=== PATIENT | female | born 1980 | race Caucasian/White ===

== ENCOUNTER 2024-06-23 08:17 | Observation (INO) | payer OTHER, SELFPAY ==
[2024-06-23] VITALS (8 sets, daily range): BP systolic 101–129; BP diastolic 65–85; PULSE 83–107; RESP 14–20; TEMP 36.4–36.9; O2SAT 86–98; BMI 29.9
--- NOTE | 2024-06-23 | ECG_ITS ---
Test Reason : sob Blood Pressure : */* mmHG Vent. Rate : 73 BPM Atrial Rate : 73 BPM P-R Int : 132 ms QRS Dur : 76 ms QT Int : 374 ms P-R-T Axes : 63 44 42 degrees QTcB Int : 412 ms Normal sinus rhythm Cannot rule out Anterior infarct , age undetermined Abnormal ECG No previous ECGs available Referred By: Generic ED Physician Electronically Signed By: TRINI CAMPOVERDE MD
--- NOTE | ~2024-06-23 | XR_ITS ---
EXAMINATION: XR CHEST 1 VIEW HISTORY: SOB COMPARISON: There are no prior studies for comparison. FINDINGS: A single AP portable view of the chest performed at 9:43 AM is submitted. The lungs are expanded and clear. There is no pleural effusion, pneumothorax, or pulmonary vascular congestion. The heart is normal in size. There is mild degenerative disc disease of the spine. XR/XR chest 1V IMPRESSION: Clear lungs. Electronically signed by: Hiren Cruz MD 06/23/2024 10:08 AM [facility]
--- NOTE | ~2024-06-23 | US_ITS ---
CLINICAL HISTORY: splenomegaly US abdomen limited Comparison: None Findings: Liver is mildly enlarged with diffuse mildly increase of echogenicity. The spleen measures 12.9 cm in size. No enlarged lymph node is noted. IMPRESSION: Hepatomegaly and mild hepatic steatosis. Borderline splenomegaly. This document has been electronically signed by: Jesus Sigala MD on 06/24/2024 12:24:46
--- NOTE | ~2024-06-23 | CT_ITS ---
EXAMINATION: CT CHEST ANGIOGRAPHY WITH IV CONTRAST INDICATION: difficulty breathing, concern for PE COMPARISON: There are no prior studies available for comparison. TECHNIQUE: Helical CT scan of the chest was performed following administration of intravenous contrast (65 mL Omnipaque 350). The contrast bolus was timed to optimally opacify the pulmonary arteries. Thin sections were obtained through the pulmonary arteries. Coronal and sagittal reformatted images were generated. 3D/MIP reconstructed images are also obtained and reviewed. This CT exam was performed with one or more of the following dose reduction techniques: automated exposure control, adjustment of the mA and/or kV according to patient size, use of iterative reconstruction technique. DLP: 219 mGy-cm CHEST: THYROID: The thyroid gland is unremarkable. PULMONARY ARTERIES: No intraluminal filling defects are identified within the pulmonary arteries to suggest pulmonary emboli. LUNGS: There is mild motion artifact. Scattered groundglass opacities are likely related to the phase of respiration. There are no focal airspace opacities or pulmonary nodules. MEDIASTINUM: There is no mediastinal lymphadenopathy. ALEX: There is no hilar lymphadenopathy. CARDIOVASCULATURE: The heart is normal in size. There is no pericardial effusion. The thoracic aorta is normal in caliber. DEGREE OF CORONARY CALCIFICATION: none PLEURA: There is no pleural effusion. No pneumothorax. MAIN AIRWAYS: The mainstem bronchi and proximal branches are patent. AXILLA: There is no axillary lymphadenopathy. UPPER ABDOMEN: The visualized portions of the liver and adrenals are unremarkable. The spleen is enlarged. There is thickening of the distal esophagus. BONES AND SOFT TISSUES: There is mild degenerative disc disease of the spine. CT/CT angio chest PE protocol IMPRESSION: 1. No evidence of pulmonary emboli. No focal airspace opacity is seen. 2. Splenomegaly. Thickening of the distal esophagus. This could be further evaluated with barium swallow or upper endoscopy. Electronically signed by: Hiren Cruz MD 06/23/2024 11:24 AM [facility]
[2024-06-23 09:03] LABS: MANUAL DIFF FLAG NO
[2024-06-23 09:07] LABS: Basophils Absolute Auto 0.1 X10*3/uL (0.0-0.2); Basophils Percent Auto 1.2 % (0-2); Eosinophils Absolute Auto 0.7 X10*3/uL (0.0-0.4); Eosinophils Percent Auto 8.7 % (0-4); Hematocrit 39.1 % (37.0-47.0); Imm Gran Abs Auto 0.09 X10*3/uL (0.00-0.03); Imm Gran Pct Auto 1.1 % (0.0-0.4); Lymphocytes Percent Auto 34.7 % (20-40); Mean Corpuscular HGB Conc 30.7 g/dl (31.0-35.0); Mean Corpuscular Hemoglobin 20.5 pg (27.0-33.0); Mean Corpuscular Volume 66.7 fL (80.0-98.0); Mean Platelet Volume 8.7 fL (9.4-12.3); Monocytes Absolute Auto 0.5 X10*3/uL (0.1-1.2); Monocytes Percent Auto 6.1 % (2-11); Neutrophils Absolute Auto 4.1 x10*3/uL (2.0-8.3); Neutrophils Percent Auto 48.2 % (45-73); Platelet Count 287 X10*3/uL (160-400); Red Blood Count 5.86 X10*6/uL (4.20-5.50); Red Cell Distribution Width 17.3 % (11.0-16.0); White Blood Count 8.5 X10*3/uL (4.8-10.8)
--- NOTE | 2024-06-23 09:36 | ED_ITS ---
HPI - General Adult General Chief complaint: Dyspnea Stated complaint: low oxygen Time Seen by Provider: 06/23/24 09:25 Source: patient Mode of arrival: ambulatory Limitations: no limitations History of Present Illness ED Provider: Jade Villalta PA-C HPI narrative: Patient is a 43 year old assigned female at with a history of asthma and seasonal allergies presenting to the emergency department today with continued shortness of breath / wheezing / concerns about her oxygen saturation. Patient states that she was seen at an Urgent Care on 06/20/2024 for shortness of breath / chest pain and they started her on prednisone and told her to go to an emergency department. Patient states that on 06/21/2024 she went to [facility] where she was admitted for hypoxia and continued need for breathing treatments. Patient states that after 9 hours being there - she left against medical advice. Patient states that she continues to have intermittent episodes of shortness of breath / chest pain. Patient states that during these episodes - she has kept track of her oxygenation and it has been low (80s). Patient states that her nails have been painted throughout all of this. Patient states that she has continued to take her prednisone as prescribed. Patient also noted that she has developed small blisters to the palms of her hands and she is not sure what those are. Patient denies any dizziness, lightheadedness, abdominal pain, nausea, vomiting, fever, chills, blurry vision, double vision, loss of vision, back pain, night sweats, pain with urination, increased urinary frequency, increased urinary urgency, blood in her urine or stool, syncope or a near syncopal episode, recent trauma or falls, bowel incontinence, bladder incontinence, or any other complaints at this time. Onset (ago): day(s) Relieving factors: none Exacerbating factors: none Associated symptoms: chest pain and shortness of breath Treatments prior to arrival: other (prednisone) Related Data Home Medications ?Medication ?Instructions ?Recorded ?Confirmed buspirone 5 mg tablet 5 mg PO BID 06/23/24 06/23/24 cetirizine 10 mg tablet 10 mg PO DAILY 06/23/24 06/23/24 dapagliflozin propanediol 10 mg 10 mg PO DAILY 06/23/24 06/23/24 tablet (Farxiga) fluconazole 150 mg tablet 150 mg PO DAILY 06/23/24 06/23/24 fluticasone propionate 230 2 puff inhalation BID 06/23/24 06/23/24 mcg-salmeterol 21 mcg/actuation HFA inhaler (Advair HFA) lisinopril 10 mg tablet 10 mg PO DAILY 06/23/24 06/23/24 metformin 500 mg tablet,extended 1,000 mg PO DAILY 06/23/24 06/23/24 release 24 hr metformin 500 mg tablet,extended 500 mg PO BEDTIME 06/23/24 06/23/24 release 24 hr montelukast 10 mg tablet 10 mg PO BEDTIME 06/23/24 06/23/24 prednisone 20 mg tablet See Taper PO DIRECTED 06/23/24 06/23/24 semaglutide 0.25 mg or 0.5 mg (2 0.5 mg subcut WE 06/23/24 06/23/24 mg/3 mL) subcutaneous pen injector (Ozempic) sertraline 100 mg tablet 200 mg PO DAILY 06/23/24 06/23/24 Allergies Allergy/AdvReac Type Severity Reaction Status Date / Time No Known Allergies Allergy Verified 06/23/24 08:44 Review of Systems 2 Constitutional: Constitutional: Reports no additional constitutional complaints, Denies chills, Denies fever(s) and Denies night sweats Eyes: Eyes: Reports no additional eye complaints, Denies blurry vision, Denies change in vision, Denies diplopia, Denies eye discharge, Denies loss of vision and Denies eye pain ENT: Denies dizziness Cardiovascular: Cardiovascular: Reports no additional cardiovascular complaints, Reports chest pain, Denies lightheadedness, Denies Loss of Consciousness and Reports dyspnea Respiratory: Respiratory: Reports no additional respiratory complaints, Reports cough and Reports dyspnea Gastrointestinal: Gastrointestinal: Reports no additional gastrointestinal complaints, Denies abdominal pain, Denies melena, Denies hematochezia, Denies change in bowel habits and Denies change in stool character Genitourinary: Genitourinary: Denies hematuria, Denies urinary frequency, Denies dysuria, Denies urinary incontinence, Denies urinary hesitancy and Denies urinary urgency Musculoskeletal: Musculoskeletal: Reports no additional musculoskeletal complaints, Denies numbness and Denies tingling Neurologic: Denies dizziness, Denies loss of vision, Denies numbness and Denies tingling Psychiatric: Psychiatric: Reports no additional psychiatric complaints Endocrine: Endocrine: Reports no additional endocrine complaints Hematologic/Lymphatic: Hematologic/Lymphatic: Reports no additional hematologic/lymphatic complaints Allergic/Immunologic: Allergic/Immunologic: Reports no additional allergic/immunologic complaints PMFSH Past Medical History Attestation statement: The following information was validated with the patient. Source: old records reviewed and nursing notes reviewed Social History Social History Alcohol intake: current Alcohol intake frequency: a few times a month Smoked in Last 30 Days: No Use of substances other than those prescribed or required for medical reasons: Yes Substance Use Type: Marijuana Advance Directives: No Advance Directives Information Provided: No Do you have a plan to hurt others: No Plan Physical Exam ED Vital Signs: Vital Signs - 24 hr 06/23/24 08:40 06/23/24 10:12 06/23/24 10:25 Temperature 98.2 F 97.6 F Pulse Rate 84 87 84 Respiratory Rate 20 18 20 Blood Pressure 129/85 101/65 Pulse Oximetry 97 95 Oxygen Delivery Method Room Air Room Air 06/23/24 12:05 06/23/24 13:47 06/23/24 16:11 Temperature 97.8 F Pulse Rate 83 102 H Respiratory Rate 19 14 Blood Pressure 125/74 Pulse Oximetry 86 L 93 Oxygen Delivery Method Room Air Room Air BMI result Body Mass Index 29.9 Const General: cooperative, no acute distress, alert and awake Nutritional Appearance: well nourished Orientation/consciousness: patient oriented x3 Limitations: no limitations HENMT Head: Yes normal to inspection and Yes atraumatic Ears: hearing grossly normal bilaterally and external ears normal General nose exam: Normal external nose present, no nasal discharge noted and no epistaxis Face and sinus: Yes normal facial exam, No abrasion and No laceration Mouth: Normal oral and palatal mucosa present, no drooling and no muffled voice Eyes General: appearance normal, both eyes and all related structures Periorbital: periorbital findings normal Eyelids: Yes eyelids normal Conjunctivae: conjunctivae normal Pupils: Equal, round and reactive pupils present EOM: EOMs intact bilaterally Neck Neck: Yes normal visual inspection, Yes full ROM and Yes no lymphadenopathy Chest Chest palpation & inspection: normal inspection of the chest Resp Effort & Inspection: normal respiratory effort and able to speak in complete sentences Auscultation: wheezes throughout GI Inspection: Yes normal to inspection Neuro General: patient oriented x3 and moves all extremities Cranial nerves: Yes Equal, round and reactive pupils present Cognition (Neuro): normal cognition Extrem Other: multiple small blisters with the bilateral palms - consistent with dyshidrotic eczema General: Yes full ROM and Yes capillary refill normal Psych Appearance: grossly normal Mental Status: mental status grossly normal Affect: normal affect Attitude: cooperative Thought process: Normal thought process present Thought content: Normal thought content present Insight: Good insight present (Psych) Medications Administered Generic Name Dose Route Start Last Admin Trade Name Freq PRN Reason Stop Dose Admin Albuterol/Ipratropium 3 ml 06/23/24 16:00 06/23/24 16:09 Albuterol/Iprat 2.5/0.5mg 3 Ml Ampul.Neb INHALE 3 ml RQ4H JERZY Administration Discontinued Medications Generic Name Dose Route Start Last Admin Trade Name Freq PRN Reason Stop Dose Admin Albuterol Sulfate 2.5 mg/ 0 mg 06/23/24 10:11 06/23/24 10:16 Albuterol/Ipratropium 3 ml INHALE 06/23/24 10:12 5 dose ONCE ONE Administration Sodium Chloride 1,000 mls @ 999 mls/hr 06/23/24 11:45 06/23/24 13:30 Ns IV 06/23/24 12:45 Infused .Q1H1M JERZY Infusion Magnesium Sulfate/Dextrose 1 gm in 100 mls @ 100 mls/hr 06/23/24 11:38 06/23/24 12:20 Magnesium Sulfate/D5w IV 06/23/24 12:37 Infused ONCE ONE Infusion Iohexol 100 ml 06/23/24 11:06 06/23/24 11:06 Iohexol 350 Mg/Ml 100 Ml Infus..Btl IV 06/23/24 11:07 70 ml ONCE ONE Administration Methylprednisolone Sodium Succinate 60 mg 06/23/24 11:38 06/23/24 12:02 Methylprednisolone Sod Succ 125 Mg/2 Ml Vial IVPUSH 06/23/24 11:39 60 mg ONCE ONE Administration Medical Decision Making Medical Decision Making MDM Narrative: Patient is a 43 year old assigned female at with a history of asthma and seasonal allergies presenting to the emergency department today with continued shortness of breath / wheezing / concerns about her oxygen saturation. Patient's physical exam was as noted in the physical exam portion of this note. Patient's blisters / rash to the palm of her hands is most consistent with dyshidrotic eczema. Patient's blood work was unremarkable. Patient's EKG was unremarkable. Patient's chest x-ray and CT PE studies showed no acute process. Patient desatted while in the department to the mid 80s. Patient was given breathing treatments, IV magnesium, and IV solu-medrol which upon re-evaluation she stated helped her symptoms some. I spoke to the hospitalist team who agreed to admission. I explained my physical exam findings as well as all test results to the patient. I answered all questions asked by the patient. Patient verbalized agreement and understanding with this treatment plan and admission. Differential Diagnosis Differential Diagnoses: The differential diagnosis associated with the presentation includes Asthma exacerbation Dyshidrotic eczema Hypoxia Admission/Observation Consideration of admission/observation: Escalation of care including admission/observation considered Patient admitted as noted in the MDM Rationale portion of this note. Consult Healthcare Provider Management of the patient was discussed with: Hospitalist (agreed to admission as noted in the MDM Rationale portion of this note. ) Lab Data [facility] Lab Attestation statement: I reviewed the patient's lab results. My interpretation of these results are in the MDM Rationale portion of this note. 06/23/24 08:58 06/23/24 08:58 Labs: Lab Results 06/23/24 Range/Units 08:58 WBC 8.5 (4.8-10.8) X10*3/uL RBC 5.86 H (4.20-5.50) X10*6/uL Hgb 12.0 (12.0-16.0) g/dl Hct 39.1 (37.0-47.0) % MCV 66.7 L (80.0-98.0) fL MCH 20.5 L (27.0-33.0) pg MCHC 30.7 L (31.0-35.0) g/dl RDW 17.3 H (11.0-16.0) % Plt Count 287 (160-400) X10*3/uL MPV 8.7 L (9.4-12.3) fL Immature Gran % (Auto) 1.1 H (0.0-0.4) % Neut % (Auto) 48.2 (45-73) % Lymph % (Auto) 34.7 (20-40) % Weakley % (Auto) 6.1 (2-11) % Eos % (Auto) 8.7 H (0-4) % Baso % (Auto) 1.2 (0-2) % Lymph # (Auto) 3.0 (1.2-4.9) X10*3/uL Weakley # (Auto) 0.5 (0.1-1.2) X10*3/uL Eos # (Auto) 0.7 H (0.0-0.4) X10*3/uL Baso # (Auto) 0.1 (0.0-0.2) X10*3/uL Abs Immat Gran (auto) 0.09 H (0.00-0.03) X10*3/uL Absolute Neuts (auto) 4.1 (2.0-8.3) x10*3/uL Absolute Nucleated RBC 0.000 (0.0-0.012) X10*3/uL Nucleated RBC % (auto) 0.0 (0.0-0.2) /100WBC Sodium 140 (135-145) mmol/L Potassium 4.2 (3.3-5.1) mmol/L Chloride 110 H (96-108) mmol/L Carbon Dioxide 21 L (22-29) mmol/L Anion Gap 13 (12-20) BUN 23 H (9-16) mg/dL Creatinine 0.71 (0.5-1.4) mg/dL Estim Creat Clear Calc 92.6 Estimated GFR > 60 Random Glucose 131 H (60-115) mg/dL Calcium 8.6 (8.4-10.2) mg/dL Total Bilirubin 0.4 (0.0-1.0) mg/dL AST 14 (5-31) U/L ALT 12 (0-31) U/L Alkaline Phosphatase 80 (39-117) U/L Troponin I High Sens < 2.7 (<3.5-17.0) ng/L Total Protein 6.9 (6.5-8.0) g/dL Albumin 3.8 (3.5-5.0) g/dL Influenza Type A (PCR) NEGATIVE (Negative) Influenza Type B (PCR) NEGATIVE (Negative) RSV RNA Qual (PCR) NEGATIVE (Negative) SARS-CoV-2 RNA (RT-PCR) NEGATIVE (Negative) Independent Interpretation I performed an independent interpretation of an: EKG, Plain X-Ray and CT Scan Interpretation: My interpretation is in agreement with the radiologist's impression of these imaging studies. L EXAMINATION: XR CHEST 1 VIEW HISTORY: SOB COMPARISON: There are no prior studies for comparison. FINDINGS: A single AP portable view of the chest performed at 9:43 AM is submitted. The lungs are expanded and clear. There is no pleural effusion, pneumothorax, or pulmonary vascular congestion. The heart is normal in size. There is mild degenerative disc disease of the spine. XR/XR chest 1V IMPRESSION: Clear lungs. Electronically signed by: Hiren Cruz MD 06/23/2024 10:08 AM [facility] Dictated By: Hiren Cruz MD Signed By: Electronically signed by Hiren Cruz MD 06/23/24 1008 Report Number: [id number]: Total DLP = 219.00 mGy-cm EXAMINATION: CT CHEST ANGIOGRAPHY WITH IV CONTRAST INDICATION: difficulty breathing, concern for PE COMPARISON: There are no prior studies available for comparison. TECHNIQUE: Helical CT scan of the chest was performed following administration of intravenous contrast (65 mL Omnipaque 350). The contrast bolus was timed to optimally opacify the pulmonary arteries. Thin sections were obtained through the pulmonary arteries. Coronal and sagittal reformatted images were generated. 3D/MIP reconstructed images are also obtained and reviewed. This CT exam was performed with one or more of the following dose reduction techniques: automated exposure control, adjustment of the mA and/or kV according to patient size, use of iterative reconstruction technique. DLP: 219 mGy-cm CHEST: THYROID: The thyroid gland is unremarkable. PULMONARY ARTERIES: No intraluminal filling defects are identified within the pulmonary arteries to suggest pulmonary emboli. LUNGS: There is mild motion artifact. Scattered groundglass opacities are likely related to the phase of respiration. There are no focal airspace opacities or pulmonary nodules. MEDIASTINUM: There is no mediastinal lymphadenopathy. ALEX: There is no hilar lymphadenopathy. CARDIOVASCULATURE: The heart is normal in size. There is no pericardial effusion. The thoracic aorta is normal in caliber. DEGREE OF CORONARY CALCIFICATION: none PLEURA: There is no pleural effusion. No pneumothorax. MAIN AIRWAYS: The mainstem bronchi and proximal branches are patent. AXILLA: There is no axillary lymphadenopathy. UPPER ABDOMEN: The visualized portions of the liver and adrenals are unremarkable. The spleen is enlarged. There is thickening of the distal esophagus. BONES AND SOFT TISSUES: There is mild degenerative disc disease of the spine. CT/CT angio chest PE protocol IMPRESSION: 1. No evidence of pulmonary emboli. No focal airspace opacity is seen. 2. Splenomegaly. Thickening of the distal esophagus. This could be further evaluated with barium swallow or upper endoscopy. Electronically signed by: Hiren Cruz MD 06/23/2024 11:24 AM EST Dictated By: Hiren Cruz MD Signed By: Electronically signed by Hiren Cruz MD 06/23/24 1124 I independently interpreted this EKG and am in agreement with the below findings: Vent. Rate: 73 BPM Atrial Rate: 73 BPM P-R Int: 132 ms QRS Dur: 76 ms QT Int: 374 ms P-R-T Axes: 63 44 42 degrees QTcB Int: 412 ms Normal sinus rhythm Cannot rule out Anterior infarct, age undetermined No previous ECGs available Electronically Signed By: BURT CAMPOVERDE MD Dictated By: Burt Campoverde MD Signed By: Electronically signed by Burt Campoverde MD 06/23/24 1055 Radiology Impression Discussion of test interpretation with radiology: I have reviewed the radiologist's reading. Critical Care Time Critical Care Time Critical Care Time: Yes Total Critical Care Time: 41 Attestation: I spent 41 minutes of Critical Care Time with this patient. This does not include time spent on separately reported billable procedures. Discharge Plan Discharge Clinical Impression: Asthma with exacerbation, Hypoxia Patient Disposition: Admitted As Inpatient
[2024-06-23 09:43] LABS: Influenza A PCR NEGATIVE (Negative); Influenza B PCR NEGATIVE (Negative); Resp Syncy Virus RNA Qual PCR NEGATIVE (Negative); SARS COV2 PCR INHOUSE NEGATIVE (Negative)
[2024-06-23 09:44] LABS: Alanine Aminotransferase 12 U/L (0-31); Albumin Level 3.8 g/dL (3.5-5.0); Anion Gap 13 (12-20); Aspartate Amino Transferase 14 U/L (5-31); Bilirubin Total 0.4 mg/dL (0.0-1.0); Blood Urea Nitrogen 23 mg/dL (9-16); Calcium 8.6 mg/dL (8.4-10.2); Carbon Dioxide 21 mmol/L (22-29); Chloride 110 mmol/L (96-108); Creatinine Clr Calc Pharmacy 92.6; Estimated Glomerular Filt Rate > 60; Glucose Random 131 mg/dL (60-115); Potassium 4.2 mmol/L (3.3-5.1); Sodium 140 mmol/L (135-145); Total Protein 6.9 g/dL (6.5-8.0)
[2024-06-23 09:48] LABS: Troponin-I High Sensitivity < 2.7 ng/L (<3.5-17.0)
[2024-06-23] MEDS: Albuterol Sulfate 2.5 MG, Albuterol/Iprat 2.5/0.5MG 3 ML 3 ML INHALE (10:16)
--- NOTE | 2024-06-23 10:21 | PC.NURSE ---
pt is alert and oriented, skin pwd, respirations even and unlabored, ls wheezing through out all banks, pt reports feeling sob 5-6 days with a dry cough initially and now a junky cough but not productive, denies pain, vs stable and ns on the monitor
[2024-06-23] MEDS: iohexoL 350 MG/ML 100 ML INFUS..BTL IV (11:06)
[2024-06-23] MEDS: 0.9 % Sodium Chloride 1,000 ML 999 ML IV (12:02)
[2024-06-23] MEDS: methylPREDNISolone Sod Succ 125 MG/2 ML VIAL 60 MG IVPUSH (12:02)
[2024-06-23] MEDS: Magnesium Sulfate/D5W 1 GM/100 ML PIGGYBACK IV (12:03)
[2024-06-23 14:10] LABS: Alkaline Phosphatase 80 U/L (39-117)
--- NOTE | 2024-06-23 14:27 | PHA.MEDREC ---
Addendum entered by Chelo Fry [facility] 06/23/24 14:55: REVIEWED Original Note: Pharmacy Consult ? Medication Reconciliation Pharmacy has completed the medication reconciliation. Spoke with patient and she confirmed her medications. Patient confirmed she is taking the Fluconazole 150mg tab and stated she took 1 tab of that this morning. She confirmed her Prednisone 20mg regimen and confirmed she is taking 3 tabs for 3 days, 2 tabs for 3 days and 1 tab for 3 days and stated she is on her last day of taking 3 tabs for 3 days and stated she was going to be starting the 2 tabs for 3 days tomorrow. She confirmed she was taking the Amoxicillin 500mg tab 1 Q8H but stated she thinks she had a bad reaction to it and stopped it on Wednesday. She confirmed she is still taking the Ozempic 0.5mg injection once a week and confirmed she is taking it on Wednesdays but states she was not able to do it this weekend due to circumstances out of her control but confirmed she did it on 06/14. She confirmed she took her morning medications this morning this morning except for the Metformin, she stated she did not get to take it this morning.
[2024-06-23] MEDS: Albuterol/Iprat 2.5/0.5MG 3 ML AMPUL.NEB INHALE ×2 (16:09→19:49)
[2024-06-23] MEDS: Loratadine 10 MG TABLET PO (16:47)
[2024-06-23] MEDS: 0.9 % Sodium Chloride Flush 3 ML SYRINGE IVFLUSH (16:48)
--- NOTE | 2024-06-23 17:57 | P.HPHOSP_ITS ---
History of Present Illness Date of Service: 06/23/24 Attending physician on admission: Sri Snowden Chief Complaint: asthma execerbation Hpi:43 y/o F with pmhx asthma, htn ,dm, obesity and seasonal allergies came with shortness of breath & concerns about her oxygen saturation.Patient states that she was seen at an Urgent Care on 06/20/2024 for shortness of breath ,given prednisone , Patient says that on 06/21/2024 she went to [facility] for hypoxia and continued need for breathing treatments.she left against medical advice. Patient states that she continues to have intermittent episodes of shortness of breath / chest soarness with cough. as per ED:during these episodes - she has kept track of her oxygenation and it has been low (80s). In ed also documented sats of 86% on room air. ?Patient also noted that she has developed small blisters to the palms of her hands and she is not sure what those are. Denies sick contact or abdominal pain or fever or chills or nausea or vomiting Denies any weakness or numbness. labs :wbc: 8.5 bmp seems fine serologies for influenza A&B/RSV/COVID -negative. cta: 1. No evidence of pulmonary emboli. No focal airspace opacity is seen. 2. Splenomegaly. Thickening of the distal esophagus. This could be further evaluated with barium swallow or upper endoscopy. cxr: Clear lungs. trop x 1 : negative. ekg: nsr . she was given nebs,steriods -requested admission for acute hypoxemic respiratory failure secondary to asthma exacerbation. Review of Systems 2 Review of Systems: as above. Yes all other systems are reviewed and are negative [facility] Social History Alcohol intake: current Alcohol intake frequency: a few times a month Smoked in Last 30 Days: No Use of substances other than those prescribed or required for medical reasons: Yes Substance Use Type: Marijuana Advance Directives: No Advance Directives Information Provided: No Do you have a plan to hurt others: No Plan Meds Allergies Allergy/AdvReac Type Severity Reaction Status Date / Time No Known Allergies Allergy Verified 06/23/24 08:44 Active Medications: Current Medications Acetaminophen (Acetaminophen 325 Mg Tablet) 650 mg PO Q6H PRN PRN Reason: Pain, Mild 1-3,fever,headache Albuterol/Ipratropium (Albuterol/Iprat 2.5/0.5mg 3 Ml Ampul.Neb) 3 ml INHALE RQ4H [facility] Last Admin: 06/23/24 16:09 Dose: 3 ml Albuterol/Ipratropium (Albuterol/Iprat 2.5/0.5mg 3 Ml Ampul.Neb) 3 ml INHALE Q3H PRN PRN Reason: Sob Buspirone HCl (Buspirone Hcl 5 Mg Tablet) 5 mg PO BID [facility] Calcium Carbonate (Calcium Carbonate 750 Mg Tab.Chew) 750 mg PO Q4H PRN PRN Reason: Heartburn Empagliflozin (Empagliflozin 10 Mg Tablet) 10 mg PO DAILY [facility] Enoxaparin Sodium (Enoxaparin Sodium 40 Mg/0.4 Ml Syringe) 40 mg SUBCUT Q24H [facility] Guaifenesin (Guaifenesin 200 Mg/10 Ml 10 Ml Liquid) 10 ml PO QID [facility] Lisinopril (Lisinopril 10 Mg Tablet) 10 mg PO DAILY [facility]; Protocol Loratadine (Loratadine 10 Mg Tablet) 10 mg PO DAILY [facility] Last Admin: 06/23/24 16:47 Dose: 10 mg Magnesium Hydroxide (Milk Of Magnesia 30 Ml Oral.Susp) 30 ml PO DAILY PRN PRN Reason: Constipation Melatonin (Melatonin 3 Mg Tablet) 6 mg PO BEDTIME PRN PRN Reason: Insomnia Methylprednisolone Sodium Succinate (Methylprednisolone Sod Succ 40 Mg/Ml Vial) 40 mg IVPUSH BID [facility] Montelukast Sodium (Montelukast Sodium 10 Mg Tablet) 10 mg PO BEDTIME [facility] Non-Formulary Medication (Semaglutide [Ozempic]) 0.5 mg SUBCUT [facility] Sertraline HCl (Sertraline Hcl 100 Mg Tablet) 200 mg PO DAILY [facility] Sodium Chloride (0.9 % Sodium Chloride Flush 3 Ml Syringe) 3 ml IVFLUSH QSHIFT [facility] Last Admin: 06/23/24 16:48 Dose: 3 ml Sodium Chloride (0.9 % Sodium Chloride Flush 3 Ml Syringe) 3 ml IVFLUSH QSHIFT [facility] Home Medications ?Medication ?Instructions ?Recorded ?Confirmed ?Last Taken ?Type buspirone 5 mg tablet 5 mg PO BID 06/23/24 06/23/24 06/23/24 History cetirizine 10 mg tablet 10 mg PO DAILY 06/23/24 06/23/24 06/23/24 History dapagliflozin propanediol 10 mg 10 mg PO DAILY 06/23/24 06/23/24 06/23/24 History tablet (Farxiga) fluconazole 150 mg tablet 150 mg PO DAILY 06/23/24 06/23/24 06/23/24 History fluticasone propionate 230 2 puff inhalation BID 06/23/24 06/23/24 06/23/24 History mcg-salmeterol 21 mcg/actuation HFA inhaler (Advair HFA) lisinopril 10 mg tablet 10 mg PO DAILY 06/23/24 06/23/24 06/23/24 History metformin 500 mg tablet,extended 1,000 mg PO DAILY 06/23/24 06/23/24 06/23/24 History release 24 hr metformin 500 mg tablet,extended 500 mg PO BEDTIME 06/23/24 06/23/24 06/22/24 History release 24 hr montelukast 10 mg tablet 10 mg PO BEDTIME 06/23/24 06/23/24 06/22/24 History prednisone 20 mg tablet See Taper PO DIRECTED 06/23/24 06/23/24 06/23/24 History semaglutide 0.25 mg or 0.5 mg (2 0.5 mg subcut WE 06/23/24 06/23/24 06/14/24 History mg/3 mL) subcutaneous pen injector (Ozempic) sertraline 100 mg tablet 200 mg PO DAILY 06/23/24 06/23/24 06/23/24 History Physical Exam 2 Vital Signs and Narrative: Vital Signs: Last Vital Signs Temp 97.8 F 06/23/24 13:47 Pulse 102 H 06/23/24 16:11 Resp 14 06/23/24 16:11 BP 125/74 06/23/24 13:47 Pulse Ox 93 06/23/24 13:47 O2 Del Method Room Air 06/23/24 13:47 BMI result Body Mass Index 29.9 Appearance: Alert.? Oriented X3.?. cvs: rrr, [id number] , no murmur res: air entry improving ,has b/l wheezing abd: no rebound or guarding ,nt, bs present. ext pulses present , no cyanosis. neuro: axo3 , nonfocal. Results Labs 06/23/24 08:58 06/23/24 08:58 Labs: Laboratory Results - last 24 hr 06/23/24 08:58 MCV 66.7 L MCH 20.5 L MCHC 30.7 L RDW 17.3 H Plt Count 287 MPV 8.7 L Immature Gran % (Auto) 1.1 H Neut % (Auto) 48.2 Lymph % (Auto) 34.7 [place] % (Auto) 6.1 Eos % (Auto) 8.7 H Baso % (Auto) 1.2 Lymph # (Auto) 3.0 [place] # (Auto) 0.5 Eos # (Auto) 0.7 H Baso # (Auto) 0.1 Abs Immat Gran (auto) 0.09 H Absolute Neuts (auto) 4.1 Absolute Nucleated RBC 0.000 Nucleated RBC % (auto) 0.0 Anion Gap 13 Estim Creat Clear Calc 92.6 Estimated GFR > 60 Random Glucose 131 H Calcium 8.6 Total Bilirubin 0.4 AST 14 ALT 12 Alkaline Phosphatase 80 Troponin I High Sens < 2.7 Total Protein 6.9 Albumin 3.8 Influenza Type A (PCR) NEGATIVE Influenza Type B (PCR) NEGATIVE RSV RNA Qual (PCR) NEGATIVE SARS-CoV-2 RNA (RT-PCR) NEGATIVE Imaging Radiologist's Impressions: Impressions Chest X-Ray 06/23/24 09:42 IMPRESSION: Clear lungs. Electronically signed by: Hiren Cruz MD 06/23/2024 10:08 AM EST RP Chest CTA 06/23/24 10:45 IMPRESSION: 1. No evidence of pulmonary emboli. No focal airspace opacity is seen. 2. Splenomegaly. Thickening of the distal esophagus. This could be further evaluated with barium swallow or upper endoscopy. Electronically signed by: Hiren Cruz MD 06/23/2024 11:24 AM EST RP Assessment and Plan (1) Hypoxia: Status: Acute (2) Asthma with exacerbation: Qualifiers: Asthma severity: mild Asthma persistence: intermittent Qualified Code(s): J45.21 - Mild intermittent asthma with (acute) exacerbation Status: Acute Plan 43 y/o F with pmhx asthma, htn ,dm, obesity and seasonal allergies came with shortness of breath & concerns about her oxygen saturation. acute hypoxemic respiratory failure sec asthma ( mild intermitent) excerebation: serologies for influenza A&B/RSV/COVID -negative CTA and chest x-ray negative Continue nebs, steroids, oxygen weaning Diabetes: Restrict with sliding scale coverage, medical reconciliation pending. hand rash?Bullous :unclear etiology : ?ezema vs contact reaction to nailpaint:continue to moniter< if wosen consider id eval? Hypotension: Medication reconciliation pending Obesity: Encouraged to lose weight, cutdown calories. Patient will benefit from at least observation stay-considering acute hypoxemic respiratory failure in the setting of asthma exacerbation-needs nebs, steroids, oxygen and weaning. Above management discussed with the patient in detail length she understand and in agreement with the above plan, time spent 70 minute, patient full code. Quality Stroke Does the patient have a stroke diagnosis?: No VTE Prior VTE?: No VTE Risk Level:: Medical - low VTE Device Contraindication: N/A - Device Ordered VTE Drug Contraindication: N/A - Med Ordered
[2024-06-23] MEDS: Enoxaparin Sodium 40 MG/0.4 ML SYRINGE SUBCUT (18:44)
[2024-06-23] MEDS: Acetaminophen 325 MG TABLET 650 MG PO (18:44)
[2024-06-23] MEDS: Omeprazole 20 MG CAPSULE.DR PO (18:44)
--- NOTE | 2024-06-23 20:09 | MHC.EDTECH ---
This tech took over care of pt at 1900,rounded and introduced self to pt,vitals taken,pillow given,pt given dinner,pt only ate a bite,pt ate crackers with peanut butter visitor at bedside,call hernandez in reach
--- NOTE | 2024-06-23 21:15 | MHC.EDTECH ---
POC taken 272,RN made aware,pt given crackers/ice water
[2024-06-23 21:19] LABS: Glucose, Whole Blood 272 mg/dL (60-115)
[2024-06-23] MEDS: Insulin Lispro 100 UNIT/ML 3 ML VIAL SUBCUT (21:25)
[2024-06-23] MEDS: methylPREDNISolone Sod Succ 40 MG/ML VIAL IVPUSH (21:25)
[2024-06-23] MEDS: busPIRone HCl 5 MG TABLET PO (21:25)
[2024-06-23] MEDS: Montelukast Sodium 10 MG TABLET PO (21:25)
--- NOTE | 2024-06-23 21:35 | PC.NURSE ---
Report given to AJ Martino. Transferred via wheelchair to ED Overflow. Medicated with 6 units of insulin per sliding scale for POC Glucose 272.
[2024-06-24] MEDS: 0.9 % Sodium Chloride Flush 3 ML SYRINGE IVFLUSH (00:16)
[2024-06-24 04:45] VITALS: BP 130/70; PULSE 75; RESP 16; TEMP 37.1; O2SAT 93
[2024-06-24] MEDS: Omeprazole 20 MG CAPSULE.DR PO (06:21)
--- NOTE | 2024-06-24 06:33 | PC.NURSE ---
T/w noted that pt had tele orders but no tele capabilities in overflow. Pt is a m/s obsadmit for asthma exacerbation. T/w reached out to to discuss tele necessity. said she would d/c tele order as it is not needed at this time.
[2024-06-24 07:28] LABS: Glucose, Whole Blood 228 mg/dL (60-115)
[2024-06-24 08:00] VITALS: BP 125/73; PULSE 95; RESP 16; TEMP 36.1; O2SAT 93
[2024-06-24] MEDS: busPIRone HCl 5 MG TABLET PO (08:20)
[2024-06-24] MEDS: Empagliflozin 10 MG TABLET PO (08:20)
[2024-06-24] MEDS: lisinopriL 10 MG TABLET PO (08:20)
[2024-06-24] MEDS: Insulin Lispro 100 UNIT/ML 3 ML VIAL SUBCUT ×3 (08:20→16:11)
[2024-06-24] MEDS: Sertraline HCL 100 MG TABLET 200 MG PO (08:20)
[2024-06-24] MEDS: Loratadine 10 MG TABLET PO (08:20)
[2024-06-24] MEDS: methylPREDNISolone Sod Succ 40 MG/ML VIAL IVPUSH (08:21)
[2024-06-24] MEDS: Acetaminophen 325 MG TABLET 650 MG PO (08:27)
[2024-06-24 09:20] VITALS: O2SAT 96
--- NOTE | 2024-06-24 10:12 | MHC.EDTECH ---
This PCT ambulated PT with pulse Ox. O2 sat remained 95% and above during ambulation.
[2024-06-24 11:08] LABS: MANUAL DIFF FLAG NO
[2024-06-24 11:11] LABS: Basophils Percent Auto 0.3 % (0-2); Eosinophils Percent Auto 0.1 % (0-4); Hematocrit 38.1 % (37.0-47.0); Imm Gran Abs Auto 0.09 X10*3/uL (0.00-0.03); Imm Gran Pct Auto 1.1 % (0.0-0.4); Lymphocytes Absolute Auto 0.8 X10*3/uL (1.2-4.9); Lymphocytes Percent Auto 9.7 % (20-40); Mean Corpuscular HGB Conc 31.5 g/dl (31.0-35.0); Mean Corpuscular Hemoglobin 20.9 pg (27.0-33.0); Mean Corpuscular Volume 66.3 fL (80.0-98.0); Mean Platelet Volume 9.7 fL (9.4-12.3); Monocytes Absolute Auto 0.2 X10*3/uL (0.1-1.2); Monocytes Percent Auto 3.1 % (2-11); Neutrophils Absolute Auto 6.7 x10*3/uL (2.0-8.3); Neutrophils Percent Auto 85.7 % (45-73); Platelet Count 332 X10*3/uL (160-400); Red Blood Count 5.75 X10*6/uL (4.20-5.50); Red Cell Distribution Width 17.9 % (11.0-16.0); White Blood Count 7.9 X10*3/uL (4.8-10.8)
[2024-06-24] MEDS: valACYclovir HCL 1,000 MG TABLET 1000 MG PO (11:17)
[2024-06-24 11:40] LABS: Iron 40 mcg/dL (30-160); Lactate Dehydrogenase 176 U/L (122-220); Percent Iron Saturation 13 % (15-50); Total Iron Binding Capacity 302 mcg/dL (228-428); Unsaturated Iron Binding 262 ug/dL
[2024-06-24 11:56] LABS: Glucose, Whole Blood 221 mg/dL (60-115)
[2024-06-24 12:00] LABS: Ferritin 39 ng/mL (10-250)
[2024-06-24 12:06] LABS: HIV AB/AG Nonreactive (Nonreactive); HIV Num 1 0.05 S/CO (0.00-0.99)
[2024-06-24 12:07] LABS: Syphilis Screen Nonreactive (Nonreactive)
[2024-06-24 12:09] VITALS: PULSE 90; RESP 16; O2SAT 90
[2024-06-24] MEDS: Albuterol/Iprat 2.5/0.5MG 3 ML AMPUL.NEB INHALE (12:09)
[2024-06-24 12:14] LABS: Folate 12.2 ng/mL (> or = 4.0); Vitamin B12 188 pg/mL (200-900)
--- NOTE | 2024-06-24 12:49 | P.DS_ITS ---
DS: Providers Provider Date of Service: 06/24/24 Date of admission: 06/23/24 16:19 Date of discharge: 06/24/24 Primary care physician: Tim Phillips MD DS: Diagnosis Discharge Diagnosis (1) Mild intermittent asthma with (acute) exacerbation: Status: Acute (2) Acute respiratory failure with hypoxia: Status: Acute (3) Dyshidrotic eczema: Status: Acute (4) Oral herpes simplex infection: Status: Acute (5) Hepatosplenomegaly: Status: Acute (6) Esophageal thickening: Status: Acute (7) B12 deficiency: Status: Acute DS: Summary Hospital Course Hospital Course: From the history and physical by the admitting hospitalist, Constantine Snowden MD, 06/23/24: 43 y/o F with pmhx asthma, htn ,dm, obesity and seasonal allergies came with shortness of breath & concerns about her oxygen saturation.Patient states that she was seen at an Urgent Care on 06/20/2024 for shortness of breath ,given prednisone , Patient says that on 06/21/2024 she went to [facility] for hypoxia and continued need for breathing treatments.she left against medical advice. Patient states that she continues to have intermittent episodes of shortness of breath / chest soarness with cough. as per ED:during these episodes - she has kept track of her oxygenation and it has been low (80s). In ed also documented sats of 86% on room air. ?Patient also noted that she has developed small blisters to the palms of her noriega nds and she is not sure what those are. Denies sick contact or abdominal pain or fever or chills or nausea or vomiting Denies any weakness or numbness. labs :wbc: 8.5 bmp seems fine serologies for influenza A&B/RSV/COVID -negative. cta: 1. No evidence of pulmonary emboli. No focal airspace opacity is seen. 2. Splenomegaly. Thickening of the distal esophagus. This could be further evaluated with barium swallow or upper endoscopy. cxr: Clear lungs. trop x 1 : negative. ekg: nsr . she was given nebs,steriods -requested admission for acute hypoxemic respiratory failure secondary to asthma exacerbation. She was admitted to the hospitalist service on observation and weaned quickly off of oxygen while treated with methylprednisolone and albuterol. She was discharged home to continue the previously prescirbed prednisone taper. Incidental findings of distal esophageal thickening as well as splenomegaly [borderline on US, associated with hepatomegaly and hepatic steatosis] were no marcelo and the patient will be referred to Gastroenterology for outpatient evaluation. As for the small blisters on the palms of her hands, these were felt most likely to represent dyshidrotic eczema and ought to respond to prednisone treatment, though outpatient Dermatology evaluation was recommended. She also developed an orolabial HSV infection and was started on valcyclovir. She was found to have vitamin B12 deficiency without anemia and was started on oral cyanocobalamin; repeat CBC and vitamin B12 level in 1 month were ordered. Pending laboratory studies at the time of discharge include blood culture, tickborne molecular panel, HIV serology, homocysteine, and methylmalonic acid. Time Attestation Discharge Coordination Time (in mins): 45 Quality: Safe Use of Opioids Does Pt have an Active Cancer Diagnosis on the Problem List?: No Quality: Stroke Does the patient have a stroke diagnosis?: No Physical Exam Vital Signs: Vital Signs: Last Vital Signs Temp 97 F 06/24/24 08:00 Pulse 90 06/24/24 12:09 Resp 16 06/24/24 12:09 BP 125/73 06/24/24 08:00 Pulse Ox 96 06/24/24 09:20 O2 Del Method Room Air 06/24/24 09:20 BMI result Body Mass Index 29.9 Gen: in no acute distress HEENT: sclera anicteric, moist mucus membranes, grouped vesicles on erythematous base at R corner of lips Neck: supple Lungs: clear to auscultation bilaterally Heart: regular rate and rhythm, no murmurs Abd: soft, non-tender, non-distended Ext: no edema Skin: warm/well-perfused, multiple clear bullae on palms Neuro: alert and oriented x3, no focal findings Psych: appropriate affect DS: Data Data Completed and Pending Completed studies during hospitalization [Text1]: Laboratory Results WBC 7.9 X10*3/uL (4.8-10.8) 06/24/24 10:53 RBC 5.75 X10*6/uL (4.20-5.50) H 06/24/24 10:53 Hgb 12.0 g/dl (12.0-16.0) 06/24/24 10:53 Hct 38.1 % (37.0-47.0) 06/24/24 10:53 MCV 66.3 fL (80.0-98.0) L 06/24/24 10:53 MCH 20.9 pg (27.0-33.0) L 06/24/24 10:53 MCHC 31.5 g/dl (31.0-35.0) 06/24/24 10:53 RDW 17.9 % (11.0-16.0) H 06/24/24 10:53 Plt Count 332 X10*3/uL (160-400) 06/24/24 10:53 MPV 9.7 fL (9.4-12.3) 06/24/24 10:53 Immature Gran % (Auto) 1.1 % (0.0-0.4) H 06/24/24 10:53 Neut % (Auto) 85.7 % (45-73) H 06/24/24 10:53 Lymph % (Auto) 9.7 % (20-40) L 06/24/24 10:53 [place] % (Auto) 3.1 % (2-11) 06/24/24 10:53 Eos % (Auto) 0.1 % (0-4) 06/24/24 10:53 Baso % (Auto) 0.3 % (0-2) 06/24/24 10:53 Lymph # (Auto) 0.8 X10*3/uL (1.2-4.9) L 06/24/24 10:53 [place] # (Auto) 0.2 X10*3/uL (0.1-1.2) 06/24/24 10:53 Eos # (Auto) 0.0 X10*3/uL (0.0-0.4) 06/24/24 10:53 Baso # (Auto) 0.0 X10*3/uL (0.0-0.2) 06/24/24 10:53 Abs Immat Gran (auto) 0.09 X10*3/uL (0.00-0.03) H 06/24/24 10:53 Absolute Neuts (auto) 6.7 x10*3/uL (2.0-8.3) 06/24/24 10:53 Absolute Nucleated RBC 0.000 X10*3/uL (0.0-0.012) 06/24/24 10:53 Nucleated RBC % (auto) 0.0 /100WBC (0.0-0.2) 06/24/24 10:53 Sodium 140 mmol/L (135-145) 06/23/24 08:58 Potassium 4.2 mmol/L (3.3-5.1) 06/23/24 08:58 Chloride 110 mmol/L (96-108) H 06/23/24 08:58 Carbon Dioxide 21 mmol/L (22-29) L 06/23/24 08:58 Anion Gap 13 (12-20) 06/23/24 08:58 BUN 23 mg/dL (9-16) H 06/23/24 08:58 Creatinine 0.71 mg/dL (0.5-1.4) 06/23/24 08:58 Estim Creat Clear Calc 92.6 06/23/24 08:58 Estimated GFR > 60 06/23/24 08:58 POC Glucose 221 mg/dL (60-115) H 06/24/24 11:51 Random Glucose 131 mg/dL (60-115) H 06/23/24 08:58 Calcium 8.6 mg/dL (8.4-10.2) 06/23/24 08:58 Iron 40 mcg/dL (30-160) 06/24/24 10:53 TIBC 302 mcg/dL (228-428) 06/24/24 10:53 % Saturation 13 % (15-50) L 06/24/24 10:53 Unsat Iron Binding 262 ug/dL 06/24/24 10:53 Ferritin 39 ng/mL (10-250) 06/24/24 10:53 Total Bilirubin 0.4 mg/dL (0.0-1.0) 06/23/24 08:58 AST 14 U/L (5-31) 06/23/24 08:58 ALT 12 U/L (0-31) 06/23/24 08:58 Alkaline Phosphatase 80 U/L (39-117) 06/23/24 08:58 Lactate Dehydrogenase 176 U/L (122-220) 06/24/24 10:53 Troponin I High Sens < 2.7 ng/L (<3.5-17.0) 06/23/24 08:58 Total Protein 6.9 g/dL (6.5-8.0) 06/23/24 08:58 Albumin 3.8 g/dL (3.5-5.0) 06/23/24 08:58 Vitamin B12 188 pg/mL (200-900) L 06/24/24 10:53 Folate 12.2 ng/mL (> or = 4.0) 06/24/24 10:53 T.pallidum Ab (EIA) Nonreactive (Nonreactive) 06/24/24 10:53 Influenza Type A (PCR) NEGATIVE (Negative) 06/23/24 08:58 Influenza Type B (PCR) NEGATIVE (Negative) 06/23/24 08:58 RSV RNA Qual (PCR) NEGATIVE (Negative) 06/23/24 08:58 SARS-CoV-2 RNA (RT-PCR) NEGATIVE (Negative) 06/23/24 08:58 Impressions Chest X-Ray 06/23/24 09:42 IMPRESSION: Clear lungs. Electronically signed by: Hiren Cruz MD 06/23/2024 10:08 AM EST RP Chest CTA 06/23/24 10:45 IMPRESSION: 1. No evidence of pulmonary emboli. No focal airspace opacity is seen. 2. Splenomegaly. Thickening of the distal esophagus. This could be further evaluated with barium swallow or upper endoscopy. Electronically signed by: Hiren Cruz MD 06/23/2024 11:24 AM EST RP Abdominal US 06/24/24 Hepatomegaly and mild hepatic steatosis. Borderline splenomegaly. Discharge Plan Discharge Patient Disposition: Home, Self-Care Discharge Diagnosis: asthma exacerbation incidental findings: - oral herpes - esophageal thickening - splenomegaly + hepatomegaly - dyshydrotic eczema - B12 deficiency [place] [facility]Provider Group] - 2 Weeks Valentina Clark MD [Physician] - 2 Weeks Tim Phillips MD [Primary Care Provider] - 1 Week Discharge Medications: New valacyclovir 1 gram Tablet 1,000 mg PO BID Qty: 20 0RF albuterol sulfate 90 mcg/actuation HFA aerosol inhaler 2 puff inhalation Q4-6H PRN (Reason: shortness of breath or wheezing) Qty: 8.5 0RF Rx Instructions: use with spacer device cyanocobalamin (vitamin B-12) 1,000 mcg tablet, sublingual 1,000 mcg sublingual DAILY Qty: 30 0RF Continued buspirone 5 mg tablet 5 mg PO BID cetirizine 10 mg tablet 10 mg PO DAILY fluconazole 150 mg tablet 150 mg PO DAILY prednisone 20 mg tablet See Taper PO DIRECTED Taper: Prednisone 30 mg daily for 3 Days and 0 Hour 20 mg daily for 3 Days and 0 Hour 10 mg daily for 3 Days and 0 Hour Rx Instructions: PATIENT IS ON LAST DAY OF TAKING 3 TABS FOR 3 DAYS, CONFIRMED SHE WAS STARTING 2 TABS FOR 3 DAYS TOMORROW (06/24). sertraline 100 mg tablet 200 mg PO DAILY lisinopril 10 mg tablet 10 mg PO DAILY metformin 500 mg tablet extended release 24 hr 1,000 mg PO DAILY metformin 500 mg tablet extended release 24 hr 500 mg PO BEDTIME fluticasone propion-salmeterol [Advair HFA] 230-21 mcg/actuation HFA aerosol inhaler 2 puff INHALATION BID dapagliflozin propanediol [Farxiga] 10 mg tablet 10 mg PO DAILY Ozempic 0.25 mg or 0.5 mg (2 mg/3 mL) pen injector 0.5 mg subcut WE montelukast 10 mg tablet 10 mg PO BEDTIME Discharge Orders: Discharge Order (Routine); Ordered 06/24/24 Ordered By: Ashleigh Shafer Diet: Diabetic diet Activity on Discharge: As tolerated Stand Alone Forms: Patient Portal Discharge page Print Language: Romansh Other Ambulatory Orders: Vitamin B12 (Routine) Timeframe: 1 Month Facility: [facility] - Location: Laboratory Ordered By: Ahsleigh Shafer Complete Blood Count Auto Diff (Routine) Timeframe: 1 Month Facility: [facility] - Location: Laboratory Ordered By: Ashleigh Shafer Care Plan Goals: recovery from asthma Health Concerns: asthma exacerbation - take prednisone taper as previously prescribed; use albuterol inhaler for rescue incidental findings: - oral herpes: take valacyclovir 1 gram [1000 mg] twice daily for 10 days - esophageal thickening: outpatient referral to Gastroenterology for further evaluation - splenomegaly + hepatomegaly: outpatient referral to Gastroenterology for further evaluation - dyshydrotic eczema: take prednisone as above; outpatient referral to Dermatology for further evaluation - B12 deficiency: take cyanocobalamin 1000 mcg PO daily and recheck CBC and B12 level in 4 weeks Please follow up with your primary care doctor within 1 week. Return to the hospital if you experience recurrent or worsening symptoms. Plan of Treatment: as above Assessment: See Discharge Summary.
[2024-06-24 16:00] VITALS: BP 109/67; PULSE 102; RESP 18; TEMP 36.5; O2SAT 93
[2024-06-24 16:03] LABS: Glucose, Whole Blood 241 mg/dL (60-115)
[2024-06-24] MEDS: Enoxaparin Sodium 40 MG/0.4 ML SYRINGE SUBCUT (16:12)
[2024-06-24 16:49] VITALS: BP 111/68; PULSE 100; RESP 15; TEMP 36.6; O2SAT 95
[2024-06-26 16:53] LABS: Homocysteine 10.9 umol/L (<10.4)
[2024-06-26 21:54] LABS: A. Phagocytphilium DNA,RT-PCR NOT DETECTED (NOT DETECTED); Babesia Microti DNA, RT-PCR NOT DETECTED (NOT DETECTED); Borrelia Miyamotoi,DNA RT-PCR NOT DETECTED (NOT DETECTED); E.Chaffeensis DNA RT-PCR NOT DETECTED (NOT DETECTED); Lyme(Borrelia ssp)DNA RT-PCR NOT DETECTED (NOT DETECTED)
[2024-06-28 03:39] LABS: Methylmalonic Acid 205 nmol/L (55-335)
== END 2024-06-24 19:20 | disposition home or self-care (01) ==
LOC: HO.ED 11:48 → HO.EDOVER 16:23
PROVIDERS: Admitting Provider Internal Medicine; Emergency Provider Emergency Medicine; PCP Family Medicine; Visit Provider Family Medicine
DX: J45.21 Mild intermittent asthma with (acute) exacerbation (principal); E53.8 Deficiency of other specified B group vitamins; R16.2 Hepatomegaly with splenomegaly, not elsewhere classified; K22.89 Other specified disease of esophagus; R06.02 Shortness of breath; R07.9 Chest pain, unspecified; R21 Rash and other nonspecific skin eruption; E11.9 Type 2 diabetes mellitus without complications; B00.9 Herpesviral infection, unspecified; L30.1 Dyshidrosis [pompholyx]; E66.9 Obesity, unspecified; Z68.29 Body mass index [BMI] 29.0-29.9, adult; Z03.818 Encounter for observation for suspected exposure to other biological agents ruled out; Z79.899 Other long term (current) drug therapy
CPT/HCPCS: 0241U; 36415; 71045; 71275; 76705; 80053; 82607; 82728; 82746; 82947; 83090; 83540; 83615; 83921; 84484; 85025; 86780; 87040; 87389; 87468; 87469; 87478; 87484; 87798; 93005; 94640; 96361; 96365; 96375; 96376; 99221; 99285; J1650; J2919; J3475; Q9967

== ENCOUNTER → 2024-06-23 08:53 | Outpatient (BNV) | payer OTHER, SELFPAY | PROVIDERS: PCP Family Medicine; Visit Provider Internal Medicine Cardiovascular Disease | DX: R94.31 Abnormal electrocardiogram [ECG] [EKG] (principal) | CPT/HCPCS: 93010 ==

== ENCOUNTER → 2024-06-23 09:42 | Outpatient (BNV) | payer OTHER, SELFPAY | PROVIDERS: PCP Family Medicine; Visit Provider Radiology Diagnostic Radiology | DX: K22.89 Other specified disease of esophagus (principal); R16.1 Splenomegaly, not elsewhere classified; R06.02 Shortness of breath | CPT/HCPCS: 71045; 71275 ==

== ENCOUNTER 2024-06-23 16:19 | Outpatient (BNV) | payer OTHER, SELFPAY | END 2024-06-24 11:12 | PROVIDERS: Admitting Provider Internal Medicine; Emergency Provider Emergency Medicine; PCP Family Medicine; Visit Provider Nuclear Medicine | DX: R16.2 Hepatomegaly with splenomegaly, not elsewhere classified (principal) | CPT/HCPCS: 76705 ==

== ENCOUNTER → 2024-06-23 16:19 | Outpatient (BNV) | payer OTHER, SELFPAY | PROVIDERS: Admitting Provider Internal Medicine; Emergency Provider Emergency Medicine; PCP Family Medicine; Visit Provider Internal Medicine | DX: J45.21 Mild intermittent asthma with (acute) exacerbation (principal); J96.01 Acute respiratory failure with hypoxia; L30.1 Dyshidrosis [pompholyx]; B00.2 Herpesviral gingivostomatitis and pharyngotonsillitis; R16.2 Hepatomegaly with splenomegaly, not elsewhere classified; K22.89 Other specified disease of esophagus; E53.8 Deficiency of other specified B group vitamins; R09.02 Hypoxemia | CPT/HCPCS: 99222; 99239 ==

== ENCOUNTER 2024-11-15 14:22 | Outpatient (AMB) | payer OTHER, SELFPAY ==
--- NOTE | 2024-11-15 14:35 | A.OFFVIS_ITS ---
Vital Signs 11/15/24 14:36 Height 5 ft 1 in Weight 162 lb BMI 30.6 BP 108/62 Blood Pressure Location Rt brachial Position Sitting Pulse 91 Pulse Source Pulse Oximeter Pulse Oximetry (%) 97 Oxygen Delivery Method Room Air Intake Visit Reasons: Asthma Allergies fluconazole Allergy (Intermediate, Verified 11/15/24 14:39) Rash HPI HPI Asthma: Details: Liz is a pleasant 44-year-old female, former minimal smoker, with asthma, DMII and h/o acute respiratory failure. She was referred by PCP for pulmonary evaluation. Her asthma history dates back to her teenage years, with exacerbations worsening after marcela COVID-19 in April 2019, which presented as a severe respiratory illness. Following COVID-19, she experienced frequent and severe asthma flare-ups, managed initially with prednisone every six months, although more recently she has seen unpredictability in her exacerbations. The patient has attempted to manage her symptoms with Advair, started about one to two years ago, alongside oral cetirizine, Montelukast, and as-needed albuterol. She now reports poor control with her current regimen, especially after switching from an inhaler to a less tolerated dry powder formulation. Contributing factors include her concurrent Type 2 Diabetes Mellitus, complicating her treatment when using prednisone due to high glucose levels. Her recent episodes include significant wheezing, hypoxia, and a requirement for prednisone and urgent care visits. Imaging studies have indicated scattered ground-glass opacities 05/2024. No known triggers from her current environment or occupation exacerbate her asthma symptoms, though familial respiratory history is noted with a son having cystic fibrosis. [facility] Social History Alcohol intake: current Alcohol intake frequency: a few times a month Substance Use Type: Marijuana Review of Systems Const Denies chills, Denies excessive sweating, Denies fever(s), Denies headache(s) and Denies night sweats Eyes Denies dry eyes, Denies irritation and Denies itchy eyes ENT Reports Normal hearing present, Denies headache(s), Denies nasal congestion, Denies nasal discharge, Denies post nasal drip and Denies sore throat Card Denies chest pain, Denies chest pain at rest, Denies chest pain with activity, Denies claudication, Denies leg edema, Denies orthopnea and Denies paroxysmal nocturnal dyspnea Resp Denies chest congestion, Denies excessive phlegm production, Denies pain on inspiration, Denies pain with cough and Denies stridor Neuro Reports Normal hearing present and Denies headache(s) Endo Denies excessive sweating Osiel/Lymph Denies lymphadenopathy Aller/Immun Denies itchy eyes and Denies seasonal rhinorrhea Physical Exam Vital Signs: Last Vital Signs Pulse 91 11/15/24 14:36 BP 108/62 11/15/24 14:36 Pulse Ox 97 11/15/24 14:36 Oxygen Delivery Method Room Air 11/15/24 14:36 BMI result Body Mass Index 30.6 Const General: cooperative, healthy appearing, comfortable, no acute distress, well developed and alert Orientation/consciousness: patient oriented x3 Limitations: no limitations HEENT Head: Yes normal to inspection, Yes normocephalic and Yes atraumatic Ears: hearing grossly normal bilaterally and external ears normal Eyes General: appearance normal, both eyes and all related structures Eyelids: Yes eyelids normal Sclerae: sclerae normal EOM: EOMs intact bilaterally Neck Neck: Yes normal visual inspection and Yes no lymphadenopathy Lymphatic: no lymphadenopathy noted Chest Chest palpation & inspection: normal inspection of the chest Resp Other: faint inspiratory scattered wheezes Effort & Inspection: normal respiratory effort, able to speak in complete sentences, no audible wheezes, no cough, no stridor, not tachypneic, no tripod positioning and no use of accessory muscles Cardio Jugular venous distension: no JVD Rate: regular rate Rhythm: regular rhythm Skin Other: warm, dry General skin exam: no rashes or lesions noted Neuro General: patient oriented x3 Cranial nerves: Yes Normal hearing present Cognition (Neuro): normal cognition Gait exam (Neuro): Normal gait present Extrem General: Yes normal to inspection, Yes capillary refill normal, Yes no clubbing, cyanosis or edema and Yes no pedal edema Psych Appearance: grossly normal and well kempt Speech and movement: Normal speech and movement present and Clear speech present Affect: normal affect Attitude: cooperative Thought process: Normal thought process present Thought content: Normal thought content present Insight: Good insight present (Psych) Judgement: Good judgement present (Psych) Results Reviewed Results Reviewed: [address] [address] [address] Scan Report Signed Patient: Liz Talamantes MR#: [id number] : 1980 Acct:[id number] Age/Sex: 43 / F ADM Date: 06/23/24 Loc: HO.ED Attending Dr: Ordering Physician: Jade Villalta Date of Service: 06/23/24 Procedure(s): CT angio chest PE protocol Accession Number(s): [id number] cc: Jade Villalta; Tim Phillips MD~ Report Number: [id number]: Total DLP = 219.00 mGy-cm EXAMINATION: CT CHEST ANGIOGRAPHY WITH IV CONTRAST INDICATION: difficulty breathing, concern for PE COMPARISON: There are no prior studies available for comparison. TECHNIQUE: Helical CT scan of the chest was performed following administration of intravenous contrast (65 mL Omnipaque 350). The contrast bolus was timed to optimally opacify the pulmonary arteries. Thin sections were obtained through the pulmonary arteries. Coronal and sagittal reformatted images were generated. 3D/MIP reconstructed images are also obtained and reviewed. This CT exam was performed with one or more of the following dose reduction techniques: automated exposure control, adjustment of the mA and/or kV according to patient size, use of iterative reconstruction technique. DLP: 219 mGy-cm CHEST: THYROID: The thyroid gland is unremarkable. PULMONARY ARTERIES: No intraluminal filling defects are identified within the pulmonary arteries to suggest pulmonary emboli. LUNGS: There is mild motion artifact. Scattered groundglass opacities are likely related to the phase of respiration. There are no focal airspace opacities or pulmonary nodules. MEDIASTINUM: There is no mediastinal lymphadenopathy. ALEX: There is no hilar lymphadenopathy. CARDIOVASCULATURE: The heart is normal in size. There is no pericardial effusion. The thoracic aorta is normal in caliber. DEGREE OF CORONARY CALCIFICATION: none PLEURA: There is no pleural effusion. No pneumothorax. MAIN AIRWAYS: The mainstem bronchi and proximal branches are patent. AXILLA: There is no axillary lymphadenopathy. UPPER ABDOMEN: The visualized portions of the liver and adrenals are unremarkable. The spleen is enlarged. There is thickening of the distal esophagus. BONES AND SOFT TISSUES: There is mild degenerative disc disease of the spine. CT/CT angio chest PE protocol IMPRESSION: 1. No evidence of pulmonary emboli. No focal airspace opacity is seen. 2. Splenomegaly. Thickening of the distal esophagus. This could be further evaluated with barium swallow or upper endoscopy. Electronically signed by: Hiren Cruz MD 06/23/2024 11:24 AM EST Dictated By: Hiren Cruz MD Signed By: <Electronically signed by Hiren Cruz MD in OV> 06/23/24 1124 DD/ 1045 TD/TT: 06/23/24 1104 Hospitalist Program Director: Assessment & Plan Assessment & Plan (1) Asthma: Code(s): J45.909 - Unspecified asthma, uncomplicated Category: Medical (2) Environmental allergies: Code(s): Z91.09 - Other allergy status, other than to drugs and biological substances Category: Medical Plan Liz reports suboptimal control on Advair, will switch to Trelegy. Explained possible insurance coverage hurdles and requested she contact us if issues arise . We discussed the necessity of a repeat pulmonary function test and a repeat CT scan to verify prior findings vs resolution of ggo on prior imaging. Allergy testing and bloodwork were also ordered to delineate any underlying triggers. May need to consider a biologic. On exam the patient did have faint inspiratory wheezes possibly pleural friction rub in addition to ongoing joint pain/sking changes, will send for JOHAN to assess for possible autoimmune component. All questions were answered and patient is in agreement of plan. Will follow up in 6-8 weeks or sooner if needed. Orders: Orders Resp Allergy Profile Region I Today Z91.09 - Other allergy status, other than to drugs and biological substances Complete Blood Count Auto Diff Today Z91.09 - Other allergy status, other than to drugs and biological substances Immunoglobulin E Today Z91.09 - Other allergy status, other than to drugs and biological substances JOHAN Reflex Titer and Pattern Today M25.50 - Pain in unspecified joint CT chest wo IV con Today R91.8 - Other nonspecific abnormal finding of lung field PFT pulmonary function test Today J45.909 - Unspecified asthma, uncomplicated Medications: New ksijnmrkbau-yfgfyrhxd-wmqurxde 200-62.5-25 mcg (Trelegy Ellipta) 1 inh inhalation DAILY 60 ea 6RF Coding Level of Care Code New Pt Level 4 (76078) Diagnoses Asthma J45.909 Environmental allergies Z91.09
[2024-11-15 14:36] VITALS: BP 108/62; PULSE 91; O2SAT 97; BMI 30.6
--- OUTSIDE RECORDS SUMMARY | 2024-11-15 16:30 | XMS_ITS | Data Portability ---
Author Organization [facility], [address] Address [address] [place] [address] Assessment No assessment recorded. Plan of Treatment Reminders Order Date Submit Date Provider Last Modified By Organization Details Last Modified Time Details Appointments None recorded. Lab SARS CoV 2 (COVID-19) Ag, QL, IA, upper respiratory specimen 2023 024 [facility], [address] [place], [address], 4 11:06:25 Referral None recorded. Procedures None recorded. Surgeries None recorded. Imaging None recorded. Medication Orders prednisone 20 mg tablet 2023 024 [facility][id number], [address] [place], [address], 4 10:36:49 albuterol sulfate 2.5 mg/3 mL (0.083 %) solution for nebulizatio n 2023 024 [email or web address] 5 Not available 4 16:42:42 ipratropium bromide 0.02 % solution for inhalation 2023 024 [email or web address] 5 Not available 4 16:45:20 albuterol sulfate HFA 90 mcg/actuati on aerosol inhaler 2023 024 [facility] #1230, [address] [place], [address], 4 16:42:26 prednisone 20 mg tablet 2023 024 [email or web address], [address] [place], [address], 10:11:39 benzonatate 200 mg capsule 2023 024 [email or web address], [address] [place], [address], 10:10:19 Allergy Relief (fluticason e) 50 mcg/actuati on nasal spray,suspe nsion 2023 024 [email or web address], [address] [place], [address], 10:11:13 ketoconazol e 2 % topical cream 2023 024 [facility]1234, [address] [place], [address], 16:09:59 prednisone 10 mg tablet 2023 024 ine [facility], [address] [place], [address], 10:11:48 Patient TargetsNo targets recorded. Patient Instructions Encounter Date Encounter Id Patient Instructions Last Modified By Organization Details Last Modified Time 12/22/2023 [id number] ringworm: care instructions Not available 12/22/2023 11:16:22 peak flow* Not available 12/21 11:06:26 asthma in adults : care instructions Not available 12/22/2023 11:06:22 Diabetic patient with asthma exacerbation , discussed close blood sugar monitoring and to reach out to pcp for treatement adjustment as needed Not available 12/22/2023 11:06:54 01/30/2024 [id number] bronchitis: care instructions [email or web address] Not available 01/30/2024 16:22:45 peak flow* REN Not available 01/29 16:54:21 03/24/2024 [id number] asthma attack: care instructions [email or web address] Not available 03/24/2024 10:36:47 Reason for Referral None Reported. Results Created Date Observation Date Name Description Value Unit Range Abnormal Flag Note LastModifiedBy Organization Detail LastModifiedTime 12/22/19 24 12/22/2023 SARS CoV 2 (COVI D-19) Ag, QL, IA, upper respi rator y speci men Unknown Analyte negati ve Not Available [address], [address], 12/22/2023 10:19:55 12/22/19 24 12/22/2023 SARS CoV 2 (COVI D-19) Ag, QL, IA, upper respi rator y speci men Unknown Analyte yes Not Available [address], [address], 12/22/2023 10:19:55 12/22/19 24 12/22/2023 peak flow* Pre (L/min) 290 Not Available [address], [address], 12/22/2023 10:20:54 12/22/1912/22/2023 peak flow* Pulse 98 Not Available [address], [address], 12/22/2023 10:20:54 12/22/19 24 12/22/2023 peak flow* Oxygen Saturation 94 Not Available [address], [address], 12/22/2023 10:20:54 01/30/20 24 01/30/2024 peak flow* Pre (L/min) 310 Not Available [address] [place] [address], [address], 01/30/2024 16:21:46 01/30/20 24 01/30/2024 peak flow* Post (L/min) 320 Not Available [facility] [address] [place], [address], 01/30/2024 16:21:46 01/30/20 24 01/30/2024 peak flow* Pulse 103 bpm Not Available [facility] [address] [place], [address], 01/30/2024 16:21:46 01/30/20 24 01/30/2024 peak flow* Oxygen Saturation 98% Not Available [facility] [address] [place], [address], 01/30/2024 16:21:46 Result Notes None recorded. Problems Name Problem SNOMED Code Status Onset Date Resolution Date Notes Provider Name and Address Organization Details Recorded Time Asthma 958945245 Active Susana Mary null, PA - [facility] 10:16:33 Hypertensive disorder 43789136 Active Susana Mary null, PA - [facility] 4 10:16:41 Type 2 diabetes mellitus 73962927 Active Susana Mary null, PA - [facility] 10:16:50 Anxiety 62726793 Active Susana Mary null, PA - [facility] 10:16:55 Depressive disorder 52204366 Active Susana Mary null, PA - [facility] 4 10:17:02 Exacerbation of intermittent asthma 582410258 Active 2023 Kaylyn Velez NP [address], [place], [address], [place] - [facility] 4 11:02:27 Tinea corporis 81865878 Active 2023 Kaylyn Velez NP [address] [place], [address], [place] - [facility] 4 11:15:26 Acute bronchitis 64019069 Active 2023 Gorge Garrido, REWRITE EDITOR [address] [place], [address], [place] - [facility] 4 16:21:25 Problem Notes None recorded. Procedures Surgical History Date Name Laterality Status Provider Name and Address Organization Details Recorded Time Nebulizer Treatment completed Susana Mary PA - [facility] 01/30/2024 16:53:46 Imaging Results None recorded. Procedure Notes None recorded. Medical Equipment None Reported. Allergies No known drug allergies Medications Name Sig Start Date Stop Date Status Note LastModified by Organization Details LastModified Time buspirone 5 mg tablet TAKE 1 TABLET BY MOUTH TWICE A DAY active Not Available Not Available No t Available prednison e 10 mg tablet TAKE 4 TABS DAILY X3 DAYS, THEN 3 TABS DAILY X3 DAYS, THEN 2 TABS DAILY X2 DAYS, 1 TAB DAILY X2 DAYS 03/24 completed Not Available Not Available Not Available albuterol sulfate 2.5 mg/3 mL (0.083 %) solution for nebulizat ion Inhale 2.5 mg every day by nebuliza tion route as directed for 1 day. 2023 active Billable unit is always one. Units are not the dose. Not Available Not Available Not Available cetirizin e 10 mg tablet TAKE 1 TABLET BY MOUTH EVERY DAY active Not Available Not Available No t Available azithromy lili 250 mg tablet TAKE 2 TABLETS ON FIRST DAY, THEN ONE TABLET DAILY FOR 4 DAYS 12/21 completed Not Available Not Available Not Available ibuprofen 800 mg tablet TAKE 1 TABLET BY MOUTH THREE TIMES A DAY NEEDED FOR PAIN active Not Available Not Available No t Available fluconazo le 150 mg tablet TAKE 1 TABLET BY MOUTH ONCE CAN REPEAT ANOTHER TABLET IN 3 DAYS IF NEEDED. 03/24 completed Not Available Not Available Not Available benzonata te 200 mg capsule Take 1 capsule 3 times a day by oral route as needed for 7 days, for cough. 03/24 completed Not Available Not Available Not Available valacyclo vir 1 gram tablet TAKE 1 TABLET BY MOUTH EVERY 8 HOURS,X7 DAYS 12/21 completed Not Available Not Available Not Available prednison e 20 mg tablet 60 mg po daily x 2 d then 40 mg po daily x 2 d then 20 mg po daily x 2 d then 10 mg po daily until complete 2023 active Not Available Not Available Not Avai lable sertralin e 100 mg tablet TAKE 2 TABLETS BY MOUTH EVERY DAY active Not Available Not Available No t Available lorazepam 0.5 mg tablet TAKE 1 TABLET BY MOUTH 2 TIMES A DAY NEEDED FOR ANXIETY 03/24 completed Not Available Not Available Not Available glipizide ER 2.5 mg tablet, extended release 24 hr TAKE 1 TABLET BY MOUTH EVERY DAY 12/21 completed Not Available Not Available Not Available cephalexi n 500 mg capsule TAKE 1 CAPSULE BY MOUTH 4 TIMES A DAY FOR 7 DAYS 12/21 completed Not Available Not Available Not Available oseltamiv ir 75 mg capsule TAKE 1 CAPSULE BY MOUTH TWICE A DAY FOR 5 DAYS 12/21 completed Not Available Not Available Not Available lisinopri l 10 mg tablet TAKE 1 TABLET BY MOUTH EVERY DAY active Not Available Not Available No t Available prednison e 50 mg tablet TAKE 1 TABLET BY MOUTH EVERY DAY FOR 5 DAYS 12/21 completed Not Available Not Available Not Available diclofena c sodium 75 mg tablet,de layed release PLEASE SEE ATTACHED FOR DETAILED DIRECTIO NS 12/21 completed Not Available Not Available Not Available monteluka st 10 mg tablet TAKE 1 TABLET BY MOUTH EVERY EVENING active Not Available Not Available No t Available mupirocin 2 % topical ointment APPLY TOPICALL Y 3 TIMES A DAY, X 7 DAYS 12/21 completed Not Available Not Available Not Available ketoconaz ole 2 % topical cream APPLY TO THE AFFECTED AREA(S) BY TOPICAL ROUTE TWICE DAILY for 14 days 01/29 completed Not Available Not Available Not Available fluticaso ne propionat e 50 mcg/actua tion nasal spray,margarita pension SPRAY 1 SPRAY EVERY DAY BY INTRANAS AL ROUTE DIRECTED FOR 90 DAYS, FOR NASAL CONGESTI ON. 03/24 completed Not Available Not Available Not Available metformin ER 500 mg tablet,ex tended release 24 hr TAKE 2 TABLETS BY MOUTH IN THE MORNING AND 1 TAB IN THE EVENING active Not Available Not Available No t Available ipratropi um bromide 0.02 % solution for inhalatio n Inhale 0.5 mg every day by inhalati on route as directed for 1 day. 2023 active Billable unit is always one. Units are not the dose. Not Available Not Available Not Available Ventolin HFA 90 mcg/actua tion aerosol inhaler INHALE 2 PUFFS EVERY 4 HOURS BY INHALATI ON ROUTE NEEDED FOR 10 DAYS, FOR COUGH, WHEEZING . active Not Available Not Available No t Available Advair HFA 230 mcg-21 mcg/actua tion aerosol inhaler INHALE 2 PUFFS BY MOUTH 2 TIMES A DAY active Not Available Not Available No t Available Farxiga 10 mg tablet TAKE 1 TABLET BY MOUTH EVERY DAY active Not Available Not Available No t Available Farxiga 5 mg tablet TAKE 1 TABLET BY MOUTH EVERY DAY active Not Available Not Available No t Available Runfaces G7 Sensor device USE DIRECTED CHANGE SENSOR EVERY 10 DAYS active Not Available Not Available No t Available Ozempic 0.25 mg or 0.5 mg (2 mg/3 mL) subcutane ous pen injector INJECT 0.5 MG UNDER THE SKIN EVERY WEEK active Not Available Not Available No t Available Vitals Date Recorded Body weight Body mass index (BMI) Body height Oxygen saturation Oxygen saturation in Arterial blood by Pulse oximetry Heart rate Respiratory rate Systolic blood pressure Diastolic blood pressure Provider Name and Address Organization Details Last Updated DateTime 4 78570.6 6 g 33.1 kg/m2 154.94 cm 94 % 94 % 98 /min 18 /min 114 mm[Hg] 77 mm[Hg] Susana Ernandezella PA - [facility] 4 10:14:02 Date Recorded Body height Body mass index (BMI) Body weight Body temperature Oxygen saturation Oxygen saturation in Arterial blood by Pulse oximetry Heart rate Respiratory rate Systolic blood pressure Diastolic blood pressure Provider Name and Address Organization Details Last Updated DateTime 4 154.94 cm 32.1 kg/m2 94230.7 g 98.8 [degF] 96 % 96 % 113 /min 16 /min 99 mm[Hg] 66 mm[Hg] Susana Mary PA - [facility] 4 16:07:44 Date Recorded Body height Body mass index (BMI) Body weight Respiratory rate Body temperature Heart rate Oxygen saturation Oxygen saturation in Arterial blood by Pulse oximetry Systolic blood pressure Diastolic blood pressure Provider Name and Address Organization Details Last Updated DateTime 4 154.94 cm 30.2 kg/m2 27268.7 8 g 20 /min 98 [degF] 82 /min 96 % 96 % 119 mm[Hg] 79 mm[Hg] NAKUL SHIRLEY PA - [facility] 10:13:46 Social History Question Answer Notes LastModified by Organizat ion Details LastModified Time Tobacco Smoking Status Former Smoker Susana Mary null, PA - [facility] 12/22/2023 10:17:40 When Did You Quit Smoking? 6-10yearssin celastcigare tte Information not available 12/22/2023 Have You Recently Traveled Abroad? No Information not available 12/22/2023 Sex: Unknown Functional Status Question Answer Note LastModified by Organizat ion Details LastModified Time Do you use any illicit or recreational drugs? No Information not available 12/22/2023 Do you or have you ever used any other forms of tobacco or nicotine? No Information not available 12/22/2023 What is your level of alcohol consumption? Occasional Information not available 12/22/2023 Are you currently employed? Yes Information not available 12/22/2023 Mental Status None recorded. Family History Nothing Reported. Medical History No medical history recorded. Gynecological History Statement/Question Response Date of LMP 02/25/2024 Is there any chance of ? No LMP Approximate Obstetrics History GPAL:G 0 P 0 0 0 0 Immunizations Vaccine Type Date Status Note Provider Nam e and Address Organization Details Recorded Time Influenza, MDCK, quadrivalent, PF 1 completed Susana Mary null, PA - [facility] 12/22/2023 10:13:17 Influenza, MDCK, quadrivalent, PF 9 completed Susana Mary null, PA - [facility] 12/22/2023 10:13:17 Influenza, MDCK, quadrivalent, preservative 8 completed Susana Mary null, PA - [facility] 12/22/2023 10:13:17 MMR 2 completed Susana Mary null, PA - [facility] 12/22/2023 10:13:17 MMR 4 completed Susana Mary null, PA - [facility] 12/22/2023 10:13:17 COVID-19, mRNA, LNP-S, PF, 100 mcg/0.5mL dose or 50 mcg/0.25mL dose 2 completed Susana Mary null, PA - [facility] 12/22/2023 10:13:17 COVID-19, mRNA, LNP-S, PF, 100 mcg/0.5mL dose or 50 mcg/0.25mL dose 1 completed Susana Mary null, PA - [facility] 12/22/2023 10:13:17 COVID-19, mRNA, LNP-S, PF, 100 mcg/0.5mL dose or 50 mcg/0.25mL dose 1 completed Susana Mary null, PA - [facility] 12/22/2023 10:13:17 Tdap 2 completed Susana Mary null, PA - [facility] 12/22/2023 10:13:17 Pneumococcal conjugate PCV 13 9 completed Susana Mary null, PA - [facility] 12/22/2023 10:13:17 DTP 6 completed Susana Mary null, PA - [facility] 12/22/2023 10:13:17 DTP 1 completed Susana Mary null, PA - [facility] 12/22/2023 10:13:17 DTP 1 completed Susana Mary null, PA - [facility] 12/22/2023 10:13:17 DTP 2 completed Susana Mary null, PA - [facility] 12/22/2023 10:13:17 DTP 1 completed Susana Mary null, PA - [facility] 12/22/2023 10:13:17 OPV 6 completed Susana Mary null, PA - [facility] 12/22/2023 10:13:18 OPV 1 completed Susana Mary null, PA - [facility] 12/22/2023 10:13:18 OPV 1 completed Susana Mary null, PA - [facility] 12/22/2023 10:13:18 OPV 2 completed Susana Mary null, PA - [facility] 12/22/2023 10:13:18 OPV 1 completed Susana Mary null, PA - [facility] 12/22/2023 10:13:18 Influenza, split virus, trivalent, preservative 5 completed Susana Mary null, PA - [facility] 12/22/2023 10:13:18 Influenza, split virus, trivalent, preservative 6 completed Susana Mary null, PA - [facility] 12/22/2023 10:13:18 Influenza, split virus, trivalent, preservative 5 completed Susana Mary null, PA - [facility] 12/22/2023 10:13:18 Influenza, split virus, trivalent, preservative 3 completed Susana Mary null, PA - [facility] 12/22/2023 10:13:18 Td (adult), 2 Lf tetanus toxoid, preservative free, adsorbed 2 completed Susana Mary null, PA - [facility] 12/22/2023 10:13:18 Td (adult), 2 Lf tetanus toxoid, preservative free, adsorbed 4 completed Susana Mary null, PA - [facility] 12/22/2023 10:13:18 Past Encounters Encounter ID Performer Location Encounter Start Date Encounter Closed Date Diagnosis/Indication Diagnosis SNOMED-CT Code Diagnosis ICD10 Code Diagnosis Note [id number] 2099_[facility] [address] [address] 02/08/2016 10:36:08 02/08/2016 11:03:09 [id number] 2099_[facility] [address] [address] 02/14/2017 08:22:16 02/14/2017 08:48:23 [id number] [address] [address] [place] [address] 04/30/2021 16:34:34 04/30/2021 18:37:19 [id number] [facility] [address] [place] [address] 05/28/2016 18:43:44 05/28/2016 19:08:02 [id number] [address] [address] [place] [address] 05/16/2017 11:04:38 05/16/2017 11:51:23 [id number] [facility] [address] [place] [address] 05/26/2018 19:36:33 05/26/2018 20:01:22 [id number] [facility] [address] [place] [address] 08/16/2020 18:44:47 08/16/2020 19:35:16 [id number] [facility] [address] [place] [address] 09/26/2017 19:55:24 09/26/2017 20:14:[id number] [place], [place] [address] [address] [place] [address] 11/26/2015 15:55:18 11/26/2015 16:41:41 [id number] [facility] [address] [place] [address] 08/15/2018 08:23:07 08/15/2018 09:34:48 [id number] Kaylyn Velez NP [address] [place] [address] 12/22/2023 10:07:33 12/22/2023 11:08:13 Exacerbation of intermittent asthma 927036879 J45.21 Follow your asthma action plan so you can manage your symptoms at home. An asthma action plan will help you prevent and control airway reactions and will tell you what to do during an asthma attack. If you do not have an asthma action plan, work with your doctor to build one.Take your asthma medicine exactly as prescribed . Medicine plays an important role in controllin g asthma. Talk to your doctor right away if you have any questions about what to take and how to take it.Use your quick-reli ef medicine when you have symptoms of an asthma attack. Some people need to use quick-reli ef medicine before they exercise to prevent asthma symptoms. Albuterol is a quick-reli ef medicine that is often used. In some cases, a certain type of controller inhaler is used as a quick-reli ef medicine. Ask your doctor what to use for quick relief.Jim e your controller medicine. If you have symptoms often, you will likely need to take it every day. Controller medicine usually includes an inhaled corticoste roid. The goal is to prevent problems before they occur.If your doctor prescribed corticoste roid pills to use during an attack, take them as directed. They may take hours to work, but they may shorten the attack and help you breathe better.Nitesh p your quick-reli ef medicine with you at all times.Talk to your doctor before using other medicines. Some medicines, such as aspirin, can cause asthma attacks in some people.Beverly ck yourself for asthma symptoms to know which step to follow in your action plan. Watch for things like being short of breath, having chest tightness, coughing, and wheezing. Also notice if symptoms wake you up at night or if you get tired quickly when you exercise.I f you have a peak flow meter, use it to check how well you are breathing. This can help you predict when an asthma attack is going to occur. Then you can take medicine to prevent the asthma attack or make it less severe.See your doctor regularly. These visits will help you learn more about asthma and what you can do to control it. Your doctor will monitor your treatment to make sure the medicine is helping you.Keep track of your asthma attacks and your treatment. After you have had an attack, write down what triggered it, what helped end it, and any concerns you have about your asthma action plan. Take your diary when you see your doctor. You can then review your asthma action plan and decide if it is working.Do not smoke or allow others to smoke around you. Avoid smoky places. Smoking makes asthma worse. If you need help quitting, talk to your doctor about stop-smoki ng programs and medicines. These can increase your chances of quitting for good.Learn what triggers an asthma attack for you, and avoid the triggers when you can. Common triggers include colds, smoke, air pollution, dust, pollen, mold, pets, cockroache s, stress, and cold air.Avoid infections such as COVID-19, colds, and the flu. Wash your hands often. Talk to your doctor about getting a pneumococc al vaccine. If you have had one before, ask your doctor if you need a second dose. Get a flu vaccine every fall. Stay up to date on your COVID-19 vaccines. Tinea corporis 33121174 B35.4 [id number] Gorge Garrido NP [address] [address] 01/30/2024 15:42:34 01/30/2024 16:44:30 Acute bronchitis 19669920 J20.9 Acute bronchitis is a common clinical condition characteri zed by an acute onset but persistent cough, with or without sputum production . It is typically self-limit ed, resolving within one to three weeks. Symptoms result from inflammati on of the lower respirator y tract and are most frequently due to viral infection. Treatment is focused on patient education and supportive care. Antibiotic s are not needed for the great majority of patients with acute bronchitis but are greatly overused for this condition. Reducing antibiotic use for acute bronchitis is a national and internatio [facility] care priority. In most patients, the cough persists for 1 to 3 weeks, with a average duration of 18 days. The cough may be associated with either purulent or nonpurulen t sputum production The presence of purulent sputum is a nonspecifi c finding and does not appear to be predictive of bacterial infection or that antibiotic s are needed. For the great majority of patients, use of antibiotic s does not hasten recovery or prevent complicati ons but puts patients at increased risk of adverse effects including potentiall y severe complicati ons such as Clostridio ides difficile infection and anaphylaxi s. Non-Pharma cological treatment for coughin . Throat lozenges2. Hot tea3. Honey4. Smoking cessation5 . Avoidance of second hand smoke. Pharmacolo gical Treatment: 1. Robitussin or guafenesin 2. Antihistam ines3. dextrometh orphan I would plan on being seen again if any of the following symptoms develop:1. Fever (100.5)2. Shortness of breath3. Wheezing4. Worsening Cough. I would go to the ER if you develop:1. Severe Shortness of breath2. Chest Pain3. Wheezing4. Coughing up Blood [id number] [place] [address] [address] 03/24/2024 09:31:38 03/24/2024 10:37:57 Exacerbation of intermittent asthma 008500390 J45.21 Health Concerns Section Related Observation LastModified by Organization Detai ls LastModified Time None Recorded Concern Status LastModified by Organization Details LastModified Time None Recorded Advance Directives Directive None Recorded Payers Insurance Date Sequence Insurance Name Policy Number Policy Boyer Covered Member ID Boyer Member ID Guarantor Name 03/24/2024 1 [facility] (MEDICAID REPLACEMENT - HMO) [id number] Liz Talamantes [id number] Liz Talamantes 12/22/2023 1 [facility] (MEDICAID REPLACEMENT - HMO) [facility] Talam[facility] [id number] Liz Talamantes Notes Date Note Type Note Provider Name and Address Organization Details Recorded Time text/html CoughReported bypatient.source of patient informationInformation obtained from patient; Patient arrived at Urgent Care ambulatory Quality:barking;dry; symptoms worse with lying down Severity:moderate Duration:4 days Timing:gradual Context:family members ill with similar symptoms; Patient denies vaping; non-smoker Associated Symptoms:no fever; no chills; no chest pain; no heartburn; no nausea; no vomiting; no edema; no agitation; no wheezing; no post nasal drip;can't get a deep breath short of breath x 4 days. exposure to covid. asthma. using inhalers (advair and ventolin with no relief) Used nebulizer machine on wednesday with no relief. last inhaler use was this morning at 830. Ventolin.rash on left ankle. x 1 week Kaylyn Velez NP [address] [place], [address], [place] 12/22/2023 11:16:57 4 text/html CoughReported bypatient.source of patient informationInformation obtained from patient; Patient arrived at Urgent Care ambulatory; learning styles: auditory Quality:harsh;dry; intermittent; symptoms worse with lying down Severity:worsening;pain with cough; moderate Duration:constant; symptoms lasting over 2 weeks Timing:worsening; gradual Context:Patient denies vaping; non-smoker;history of asthma;history of bronchitis Modifying Factors:at night Associated Symptoms:no fever; no chills; no chest pain; no heartburn; no nausea; no vomiting; no edema; no agitation;wheezing;post nasal drip;can't get a deep breath;hurts to breath Gorge Garrido NP [address] [place], [id number], [employer] [facility] 01/31/2024 07:55:13 4 text/html Shortness of BreathReported bypatient.Notes:43 yo female with h/o asthmac/o cough and wheeze uses adviar dailyalbuterol MDI and nebs prnused neb x 3 yesterday no prior overnight hospital stays or intubation for asthmashe has had to use prednisone in the past No feverNo chillsNo nauseaNo vomitingNo difficulty breathing or respiratory distressNo CPNo congestionNo sinus painNo ear painNo sore throatNo Abdominal painNo diarrheaNo myalgiaNo fatigueNo rashNo HANo dizzinessNo recent travelNo known sick contacts former smokerhas f/u with PCP in 2 weeks Catalino Morgan DO [address] [place], [id number], [employer] [facility] 03/24/2024 10:39:10 OBGyn Episode No OBEpisode recorded.
== END 2024-11-15 15:32 | disposition home or self-care (01) ==
LOC: HO.HPSW 14:22
PROVIDERS: PCP Family Medicine; Referring Provider Family Medicine; Visit Provider Nurse Practitioner Family
DX: J45.909 Unspecified asthma, uncomplicated (principal); Z91.09 Other allergy status, other than to drugs and biological substances
CPT/HCPCS: 99204

== ENCOUNTER → 2024-11-15 14:22 | Outpatient (BNVA) | payer OTHER, SELFPAY | PROVIDERS: PCP Family Medicine; Referring Provider Family Medicine; Visit Provider Nurse Practitioner Family | DX: J45.909 Unspecified asthma, uncomplicated (principal); R91.8 Other nonspecific abnormal finding of lung field; M25.50 Pain in unspecified joint; Z91.09 Other allergy status, other than to drugs and biological substances; E53.8 Deficiency of other specified B group vitamins | CPT/HCPCS: 99202 ==

== ENCOUNTER 2024-11-15 15:32 | Outpatient (REF) | payer OTHER, SELFPAY ==
[2024-11-15 18:15] LABS: Monocytes Absolute Auto 0.6 X10*3/uL (0.1-1.2); Red Cell Distribution Width 15.5 % (11.0-16.0); SCAN SMEAR FLAG 1
[2024-11-15 18:18] LABS: Basophils Absolute Auto 0.1 X10*3/uL (0.0-0.2); Basophils Percent Auto 1.1 % (0-2); Eosinophils Absolute Auto 1.2 X10*3/uL (0.0-0.4); Hemoglobin 11.8 g/dl (12.0-16.0); Imm Gran Abs Auto 0.11 X10*3/uL (0.00-0.03); Imm Gran Pct Auto 1.2 % (0.0-0.4); Lymphocytes Absolute Auto 2.1 X10*3/uL (1.2-4.9); Lymphocytes Percent Auto 22.3 % (20-40); MANUAL DIFF FLAG SCAN; Mean Corpuscular HGB Conc 31.1 g/dl (31.0-35.0); Mean Corpuscular Hemoglobin 20.3 pg (27.0-33.0); Mean Corpuscular Volume 65.5 fL (80.0-98.0); Monocytes Percent Auto 5.9 % (2-11); Neutrophils Absolute Auto 5.4 x10*3/uL (2.0-8.3); Neutrophils Percent Auto 56.5 % (45-73); Platelet Count 343 X10*3/uL (160-400); White Blood Count 9.5 X10*3/uL (4.8-10.8)
[2024-11-15 18:25] LABS: PLT ABN DIST 1
[2024-11-15 18:46] LABS: SLIDE REVIEW VERIFIED; Vitamin B12 234 pg/mL (200-900)
[2024-11-16 19:13] LABS: Immunoglobulin E 178 kU/L (<OR=114)
[2024-11-17 05:43] LABS: Class Alternaria alternata 0; Class Aspergillus fumigatus 0; Class Bermuda Grass 0; Class Birch 0; Class Cat Dander 0; Class Cladosporium herbarum 0; Class Cockroach 0; Class Common Ragweed 0; Class Cottonwood 0; Class Derm. pterony 0; Class Dermatophagoides farinae 0; Class Dog Dander 0; Class Elm 0; Class Maple Box Elder 0; Class Mountain Cedar 0; Class Mouse Urine Protein 0; Class Mugwort 0; Class Oak 0; Class Penicillium crysogenum 0; Class Rough Pigweed 0; Class Sheep Sorrel 0; Class Sycamore 0; Class Timothy Grass 0; Class Walnut Tree 0; Class White Ash 0; Class White Mulberry 0; D001 IgE D pteronyssinus <0.10 kU/L; D002 - IgE D farinae <0.10 kU/L; E001 - IgE Cat Dander <0.10 kU/L; E005 - IgE Dog Dander <0.10 kU/L; E072-IgE Mouse Urine <0.10 kU/L; G002 IgE Bermuda Grass <0.10 kU/L; G006 - IgE Timothy Grass <0.10 kU/L; I006-IgE Cockroach, German <0.10 kU/L; Immunoglobulin E 182 kU/L (<OR=114); M001 IgE Penicillium chrysogen <0.10 kU/L; M002 - IgE Cladosporium herbar <0.10 kU/L; M003 - IgE Aspergillus fumigat <0.10 kU/L; M006 - IgE Alternaria alternat <0.10 kU/L; T001 IgE Maple/Box Elder <0.10 kU/L; T003 IgE Common Silver Birch <0.10 kU/L; T006 - IgE Cedar, Mountain <0.10 kU/L; T007 - IgE Oak, White <0.10 kU/L; T008 IgE Elm, American <0.10 kU/L; T010 - IgE Walnut <0.10 kU/L; T011 - IgE Maple Leaf Sycamore <0.10 kU/L; T014 - IgE Cottonwood <0.10 kU/L; T015 - IgE Ash, White <0.10 kU/L; T070 - IgE White Mulberry <0.10 kU/L; W001 - IgE Ragweed, Short <0.10 kU/L; W006 - IgE Mugwort <0.10 kU/L; W014 IgE Pigweed, Common <0.10 kU/L; W018 IgE Sheep Sorrel <0.10 kU/L
[2024-11-17 11:04] LABS: Anti Nuclear Antibody Screen NEGATIVE (NEGATIVE)
== END 2024-11-15 15:33 | disposition home or self-care (01) ==
LOC: HO.WFDLDS 15:32
PROVIDERS: Referring Provider Family Medicine; Visit Provider Nurse Practitioner Family
DX: M25.50 Pain in unspecified joint (principal); Z91.09 Other allergy status, other than to drugs and biological substances; E53.8 Deficiency of other specified B group vitamins
CPT/HCPCS: 36415; 82607; 82785; 85025; 86003; 86038

== ENCOUNTER 2025-01-19 13:02 | Outpatient (AMB) | payer OTHER, SELFPAY ==
--- OUTSIDE RECORDS SUMMARY | 2025-01-19 13:05 | XMS_ITS ---
Author Name [facility] Organization Unknown Care Team Organization Name Specialty Phone Email Start Date End Da te [facility] 04/07/202212/29
[2025-01-19 13:11] VITALS: BP 110/62; PULSE 87; O2SAT 98; BMI 29.5
--- NOTE | 2025-01-19 13:11 | MHC.OFFVIS ---
Vital Signs 01/19/25 13:11 Height 5 ft 1 in Weight 156 lb BMI 29.5 BP 110/62 Blood Pressure Location Rt brachial Position Sitting Pulse 87 Pulse Source Pulse Oximeter Pulse Oximetry (%) 98 Oxygen Delivery Method Room Air Intake Visit Reasons: Asthma Allergies fluconazole Allergy (Intermediate, Verified 01/19/25 13:14) Rash HPI HPI Asthma: Details: Liz is a pleasant 44-year-old female, former minimal smoker, with moderate to severe asthma, DMII and h/o acute respiratory failure. She was initially referred by PCP for pulmonary evaluation for further management of asthma. Her asthma history dates back to her teenage years, with exacerbations worsening after marcela COVID-19 in April 2019 requiring frequent use of prednisone. At the last visit, she was switched to Trelegy and had some improvements in dyspnea and wheezing however continues to lack control of respiratory symptoms and she did have a flare last week due to increased outdoor exposures requiring steroids. She was also sent for CT and PFT which are scheduled next month. [facility] Social History (Updated 01/19/25 @ 13:13 by Fartun Acevedo [facility]) Alcohol intake: current Alcohol intake frequency: a few times a month Patient Tobacco Use Status: Former Tobacco user Substance Use Type: Marijuana Review of Systems Const Denies chills, Denies excessive sweating, Denies fever(s), Denies headache(s) and Denies night sweats Eyes Denies dry eyes, Denies irritation and Denies itchy eyes ENT Reports Normal hearing present, Denies headache(s), Denies nasal congestion, Denies nasal discharge, Denies post nasal drip and Denies sore throat Card Denies chest pain, Denies chest pain at rest, Denies chest pain with activity, Denies claudication, Denies leg edema, Denies dyspnea, Denies orthopnea and Denies paroxysmal nocturnal dyspnea Resp Denies chest congestion, Denies excessive phlegm production, Denies pain on inspiration, Denies pain with cough, Denies dyspnea and Denies stridor Musc Denies myalgias Neuro Reports Normal hearing present and Denies headache(s) Endo Denies excessive sweating Osiel/Lymph Denies lymphadenopathy Aller/Immun Denies itchy eyes and Denies seasonal rhinorrhea Physical Exam Vital Signs: Last Vital Signs Pulse 87 01/19/25 13:11 BP 110/62 01/19/25 13:11 Pulse Ox 98 01/19/25 13:11 Oxygen Delivery Method Room Air 01/19/25 13:11 BMI result Body Mass Index 29.5 Const General: cooperative, healthy appearing, comfortable, no acute distress, well developed and alert Orientation/consciousness: patient oriented x3 Limitations: no limitations HEENT Head: Yes normal to inspection, Yes normocephalic and Yes atraumatic Ears: hearing grossly normal bilaterally and external ears normal Eyes General: appearance normal, both eyes and all related structures Eyelids: Yes eyelids normal Sclerae: sclerae normal EOM: EOMs intact bilaterally Neck Neck: Yes normal visual inspection and Yes no lymphadenopathy Lymphatic: no lymphadenopathy noted Chest Chest palpation & inspection: normal inspection of the chest Resp Effort & Inspection: normal respiratory effort, able to speak in complete sentences, no audible wheezes, no cough, no stridor, not tachypneic, no tripod positioning and no use of accessory muscles Auscultation: diminished lung sounds Cardio Jugular venous distension: no JVD Rate: regular rate Rhythm: regular rhythm Skin Other: warm, dry General skin exam: no rashes or lesions noted Neuro General: patient oriented x3 Cranial nerves: Yes Normal hearing present Cognition (Neuro): normal cognition Gait exam (Neuro): Normal gait present Extrem General: Yes normal to inspection, Yes capillary refill normal, Yes no clubbing, cyanosis or edema and Yes no pedal edema Psych Appearance: grossly normal and well kempt Speech and movement: Normal speech and movement present and Clear speech present Affect: normal affect Attitude: cooperative Thought process: Normal thought process present Thought content: Normal thought content present Insight: Good insight present (Psych) Judgement: Good judgement present (Psych) Assessment & Plan Assessment & Plan (1) Asthma: Code(s): J45.909 - Unspecified asthma, uncomplicated Category: Medical (2) Environmental allergies: Code(s): Z91.09 - Other allergy status, other than to drugs and biological substances Category: Medical Plan Liz reported suboptimal control on Advair, switched to Trelegy and continues to report dyspnea, chest tightness and wheezing. Reviewed labs which revealed negative RAST, IgE 178 and eosinophils elevated at 13% (0-4%). We discussed initiating a biologic given the persistence of symptoms, frequent prednisone use and elevated eosinophils, which she was in agreement of. Will start Dupixent. All questions were answered and patient is in agreement of plan. Will follow up in 4-6 weeks or sooner if needed. Coding Level of Care Code Est Pt Level 4 (48809) Diagnoses Asthma J45.909 Environmental allergies Z91.09
== END 2025-01-19 13:41 | disposition home or self-care (01) ==
LOC: HO.HPSW 13:03
PROVIDERS: PCP Family Medicine; Visit Provider Nurse Practitioner Family
DX: J45.909 Unspecified asthma, uncomplicated (principal); Z91.09 Other allergy status, other than to drugs and biological substances
CPT/HCPCS: 99214

== ENCOUNTER → 2025-01-19 13:02 | Outpatient (BNVA) | payer OTHER, SELFPAY | PROVIDERS: PCP Family Medicine; Visit Provider Nurse Practitioner Family | DX: J45.909 Unspecified asthma, uncomplicated (principal); Z91.09 Other allergy status, other than to drugs and biological substances; R06.09 Other forms of dyspnea | CPT/HCPCS: 99212 ==

== ENCOUNTER 2025-02-09 14:51 | Outpatient (REF) | payer OTHER, SELFPAY ==
--- NOTE | ~2025-02-09 | CT_ITS ---
EXAMINATION: CT CHEST WITHOUT CONTRAST CLINICAL INFORMATION: R91.8 - Other nonspecific abnormal finding of lung field COMPARISON: None available. TECHNIQUE: Multidetector volumetric CT imaging of the chest was done. Axial MIP volume rendering provided. Sagittal and coronal reformatted images were obtained. This CT examination was performed using dose optimization techniques as appropriate, variously including the following: *Automated exposure control *Adjustment of mA and/or kV according to patient size (this includes techniques or standardized protocols for targeted exams where dose is matched to indication/reason for exam; i.e. extremities or head) *Use of iterative reconstruction technique DLP: 146 mGy*cm FINDINGS: LUNGS: There is minimal linear scarring or atelectasis in the medial posterior right lower lobe. Lungs are otherwise clear MEDIASTINUM: The mediastinum is normal. CORONARY ARTERY CALCIFICATION: None visualized on this study. PLEURA: There is no pleural effusion. No pleural mass or thickening. AXILLA: No lymphadenopathy. UPPER ABDOMEN: The spleen remains enlarged measuring 14.4 cm OSSEOUS STRUCTURES: Unremarkable. CT/CT chest wo IV con IMPRESSION: Unremarkable chest. Splenomegaly is again noted. Fleischner guidelines were followed. Electronically signed by: Foster Park MD 02/09/2025 05:25 PM EDT
--- NOTE | 2025-02-09 14:54 | PFT_ITS ---
Indication: Asthma Spirometry FEV1 to FVC 76%; FEV1 2.55 L; FVC 3.35 L. No significant response to bronchodilators noted. The FEF 25-75 decreased to 60% predicted Lung Volumes Total lung capacity 91% predicted Diffusion Capacity Diffusing capacity 88% predicted Comparisons None Interpretation No obstructive nor restrictive ventilatory defects identified. No significant response to bronchodilators noted. Evidence of small airways disease which could be suspicious for asthma. Lung volumes and diffusing capacity are within normal limits. If asthma is in the differential methacholine challenge would be helpful for assessing for hyperreactive airways. Clinical correlation warranted. MTDD
[2025-02-09 15:41] VITALS: PULSE 85; O2SAT 99
== END 2025-02-09 14:52 | disposition home or self-care (01) ==
LOC: HO.RESP 14:51
PROVIDERS: PCP Family Medicine; Visit Provider Nurse Practitioner Family
DX: R91.8 Other nonspecific abnormal finding of lung field (principal); J45.909 Unspecified asthma, uncomplicated; Z87.891 Personal history of nicotine dependence
CPT/HCPCS: 71250; 94010; 94640; 94727; 94729

== ENCOUNTER → 2025-02-09 14:54 | Outpatient (BNV) | payer OTHER, SELFPAY | PROVIDERS: PCP Family Medicine; Visit Provider Hospitalist | DX: J45.909 Unspecified asthma, uncomplicated (principal) | CPT/HCPCS: 94060; 94727; 94729 ==

== ENCOUNTER → 2025-02-09 15:37 | Outpatient (BNV) | payer OTHER, SELFPAY | PROVIDERS: PCP Family Medicine; Visit Provider Radiology Diagnostic Radiology | DX: R91.8 Other nonspecific abnormal finding of lung field (principal) | CPT/HCPCS: 71250 ==

== ENCOUNTER 2025-02-28 15:46 | Outpatient (AMB) | payer OTHER, SELFPAY ==
--- NOTE | 2025-02-28 15:48 | MHC.OFFVIS ---
Vital Signs 02/28/25 15:49 Height 5 ft 1 in Weight 159 lb BMI 30.0 BP 106/70 Blood Pressure Location Rt brachial Position Sitting Pulse 80 Pulse Source Pulse Oximeter Pulse Oximetry (%) 97 Oxygen Delivery Method Room Air Intake Visit Reasons: Asthma Allergies fluconazole Allergy (Intermediate, Verified 02/28/25 15:50) Rash HPI HPI Asthma: Details: Liz is a pleasant 44-year-old female, former minimal smoker, with moderate to severe asthma, DMII and h/o acute respiratory failure. Her asthma history dates back to her teenage years, with exacerbations worsening after marcela COVID-19 in April 2019 requiring frequent use of prednisone. At the last visit, she was switched to Trelegy and had some improvements in dyspnea and wheezing however continues to lack control of respiratory symptoms. Since initiating Trelegy, she has required two courses of prednisone while awaiting Dupixent. Today she presents to review chest CT and PFT results. Of note, she also reports progressively worsening respiratory symptoms over the last week including productive cough with associated chest congestion, dyspnea and wheezing. Denies fever or chills. [facility] Social History Alcohol intake: current Alcohol intake frequency: a few times a month Patient Tobacco Use Status: Former Tobacco user Substance Use Type: Marijuana Review of Systems Const Denies chills, Denies excessive sweating, Denies fever(s), Denies headache(s) and Denies night sweats Eyes Denies dry eyes, Denies irritation and Denies itchy eyes ENT Reports Normal hearing present, Denies headache(s), Denies nasal congestion, Denies nasal discharge, Denies post nasal drip and Denies sore throat Card Denies chest pain, Denies chest pain at rest, Denies chest pain with activity, Denies claudication, Denies leg edema, Denies dyspnea, Reports dyspnea on exertion, Denies orthopnea and Denies paroxysmal nocturnal dyspnea Resp Reports change in phlegm color, Denies chest congestion, Reports cough, Denies hemoptysis, Denies excessive phlegm production, Denies pain on inspiration, Denies pain with cough, Denies dyspnea, Reports dyspnea on exertion, Denies stridor and Reports wheezing Musc Denies myalgias Neuro Reports Normal hearing present and Denies headache(s) Endo Denies excessive sweating Osiel/Lymph Denies lymphadenopathy Aller/Immun Denies itchy eyes, Denies seasonal rhinorrhea and Reports wheezing Physical Exam Vital Signs: Last Vital Signs Pulse 80 02/28/25 15:49 BP 106/70 02/28/25 15:49 Pulse Ox 97 02/28/25 15:49 Oxygen Delivery Method Room Air 02/28/25 15:49 BMI result Body Mass Index 30.0 Const General: cooperative, healthy appearing, comfortable, no acute distress, well developed and alert Orientation/consciousness: patient oriented x3 Limitations: no limitations HEENT Head: Yes normal to inspection, Yes normocephalic and Yes atraumatic Ears: hearing grossly normal bilaterally and external ears normal Eyes General: appearance normal, both eyes and all related structures Eyelids: Yes eyelids normal Sclerae: sclerae normal EOM: EOMs intact bilaterally Neck Neck: Yes normal visual inspection and Yes no lymphadenopathy Lymphatic: no lymphadenopathy noted Chest Chest palpation & inspection: normal inspection of the chest Resp Effort & Inspection: normal respiratory effort, able to speak in complete sentences, no audible wheezes, no cough, no stridor, not tachypneic, no tripod positioning and no use of accessory muscles Auscultation: rhonchi, wheezes and diminished lung sounds Cardio Jugular venous distension: no JVD Rate: regular rate Rhythm: regular rhythm Skin Other: warm, dry General skin exam: no rashes or lesions noted Neuro General: patient oriented x3 Cranial nerves: Yes Normal hearing present Cognition (Neuro): normal cognition Gait exam (Neuro): Normal gait present Extrem General: Yes normal to inspection, Yes capillary refill normal, Yes no clubbing, cyanosis or edema and Yes no pedal edema Psych Appearance: grossly normal and well kempt Speech and movement: Normal speech and movement present and Clear speech present Affect: normal affect Attitude: cooperative Thought process: Normal thought process present Thought content: Normal thought content present Insight: Good insight present (Psych) Judgement: Good judgement present (Psych) Results Reviewed Results Reviewed: [address] [address] [address] Scan Report Signed Patient: Liz Talamantes MR#: [id number] : 1980 Acct:[id number] Age/Sex: 44 / F ADM Date: 02/09/25 Loc: HO.RESP Attending Dr: Maira Milian NP Ordering Physician: Maira Milian NP Date of Service: 02/09/25 Procedure(s): CT chest wo IV con Accession Number(s): [id number] cc: Tim Phillips MD; Maira Milian SPECIAL [employer] ARTIST INSTRUCTOR~ Report Number: [id number]: Total DLP = 146.00 mGy-cm Reason for Exam: R91.8 - Other nonspecific abnormal finding of lung field EXAMINATION: CT CHEST WITHOUT CONTRAST CLINICAL INFORMATION: R91.8 - Other nonspecific abnormal finding of lung field COMPARISON: None available. TECHNIQUE: Multidetector volumetric CT imaging of the chest was done. Axial MIP volume rendering provided. Sagittal and coronal reformatted images were obtained. This CT examination was performed using dose optimization techniques as appropriate, variously including the following: *Automated exposure control *Adjustment of mA and/or kV according to patient size (this includes techniques or standardized protocols for targeted exams where dose is matched to indication/reason for exam; i.e. extremities or head) *Use of iterative reconstruction technique DLP: 146 mGy*cm FINDINGS: LUNGS: There is minimal linear scarring or atelectasis in the medial posterior right lower lobe. Lungs are otherwise clear MEDIASTINUM: The mediastinum is normal. CORONARY ARTERY CALCIFICATION: None visualized on this study. PLEURA: There is no pleural effusion. No pleural mass or thickening. AXILLA: No lymphadenopathy. UPPER ABDOMEN: The spleen remains enlarged measuring 14.4 cm OSSEOUS STRUCTURES: Unremarkable. CT/CT chest wo IV con IMPRESSION: Unremarkable chest. Splenomegaly is again noted. Fleischner guidelines were followed. 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 She is aware to call if symptoms do not improve. Reviewed PFT results which revealed no obstructive nor restrictive ventilatory defects identified. No significant response to bronchodilators noted. Evidence of small airways disease which could be suspicious for asthma. Lung volumes and diffusing capacity are within normal limits. Chest CT revealed minimal linear scarring or atelectasis in the medial posterior right lower lobe, otherwise clear. There was an incidental finding of splenomegaly which was noted in the past however patient denies further follow-up with this. She also notes ongoing discomfort left upper quadrant which she had attributed to musculoskeletal etiologies. Discussed with patient importance of following up with primary care, will ensure that chest CT report is sent to PCP. She believes she received Dupixent today and will reach out to our nursing staff to arrange initial dosing/teaching. All questions were answered and patient is in agreement of plan. Will follow up in 6-8 weeks or sooner if needed. Medications: New azithromycin For 250 mg dose pack: take 500 mg today (day 1), then 250 mg for 4 days (days 2-5) PO 6 tabs 0RF prednisone see taper instructions; 40 mg Daily x3 days, 30 mg daily x3 days, 20 mg daily x3 days, 10 mg daily x3 days 10 mg PO DIRECTED 30 tabs 0RF Coding Level of Care Code Est Pt Level 4 (72224) Diagnoses Asthma J45.909 Environmental allergies Z91.09
[2025-02-28 15:49] VITALS: BP 106/70; PULSE 80; O2SAT 97
== END 2025-02-28 16:16 | disposition home or self-care (01) ==
LOC: HO.HPSW 15:47
PROVIDERS: PCP Family Medicine; Visit Provider Nurse Practitioner Family
DX: J45.909 Unspecified asthma, uncomplicated (principal); Z91.09 Other allergy status, other than to drugs and biological substances
CPT/HCPCS: 99214

== ENCOUNTER → 2025-02-28 15:46 | Outpatient (BNVA) | payer OTHER, SELFPAY | PROVIDERS: PCP Family Medicine; Visit Provider Nurse Practitioner Family | DX: J45.40 Moderate persistent asthma, uncomplicated (principal); Z91.09 Other allergy status, other than to drugs and biological substances | CPT/HCPCS: 99212 ==